=== PATIENT | male | born 1940 | race Caucasian/White ===

== ENCOUNTER → 2019-10-27 | Outpatient (CLI) | payer MEDICARE ==
[~2019-10-27] VITALS: Ht 180.3 cm; Wt 77.1 kg
[~2019-10-27] MED LIST: AMLO5TAB15 PO; CLOP75TA28 PO; GLIM2TAB33 PO; METF-370 PO
== END | disposition home or self-care (01) ==
LOC: Rad HDHVI 13:58
PROVIDERS: ATTEND Internal Medicine Cardiovascular Disease
DX: E11.9 Type 2 diabetes mellitus without complications (principal); I10 Essential (primary) hypertension; R07.89 Other chest pain; Z95.1 Presence of aortocoronary bypass graft; Z82.49 Family history of ischemic heart disease and other diseases of the circulatory system
CPT/HCPCS: 78452; 93017; 93306; 96374; A9500

== ENCOUNTER → 2019-11-23 | Outpatient (CLI) | payer MEDICARE ==
[~2019-11-23] VITALS: Ht 180.3 cm; Wt 76.8 kg
[~2019-11-23] MED LIST changes: +COLCPOW2 PO; +OMEP20TA PO; +TERA2CAP45 PO
[2019-11-23 09:00] VITALS: BP 129/67
--- NOTE | 2019-11-23 09:00 | NUR ---
CHF PT ARRIVED TO THE CHF CLINIC FOR PRE OP LABS CXR AND EKG FOR LHC. DX ANGINA, HTN, DM, AFIB, CAD A/O X4
[2019-11-23 09:38] VITALS: BP 136/72
--- NOTE | 2019-11-23 09:38 | NUR ---
Pre-Op Discharge Summary: See e-MAR for any medications given for this visit. Pre-op orders received and carried out per MD of EKG, LABS and chest xrays. Patient given a copy of EKG with [facility] for further follow up care. NOTE EKG DONE BY TOMAS EPPERSON
[2019-11-23 11:56] LABS: Basophils # (auto) 0.1 10 ^3/uL (0-0.2); Eosinophils # (auto) 0.4 10 ^3/uL (0-0.8); Eosinophils % (auto) 5.4 % (0.0-7.0); Hematocrit 39.3 % (41.0-53.0); Hemoglobin 13.4 g/dL (13.5-17.5); Lymphocytes # (auto) 1.1 10 ^3/uL (0.4-5.4); Lymphocytes % (auto) 14.4 % (10.0-50.0); Mean Corpuscular Hemoglobin 31.4 pg (28.0-32.0); Mean Corpuscular Volume 92.1 fL (80.0-100.0); Monocytes # (auto) 0.7 10 ^3/uL (0-1.3); Monocytes % (auto) 8.7 % (0.0-12.0); Neutrophils # (auto) 5.3 10 ^3/uL (1.6-8.6); Neutrophils % (auto) 70.5 % (37.0-80.0); Nucleated Red Blood Cells % 0.1 %; Platelet Count (auto) 238 10^3/uL (140-450); Red Blood Cells 4.27 10^6/uL (4.5-5.90); Red Cell Distribution Width 13.8 % (11.8-14.3); White Blood Cell 7.5 10^3/uL (4.4-10.8)
[2019-11-23 12:07] LABS: Potassium 4.2 mmol/L (3.5-5.1)
[2019-11-23 12:12] LABS: BUN/Creatinine Ratio 26.3; Calcium 9.3 mg/dL (8.5-10.1)
[2019-11-23 12:17] LABS: INR 1.02 (0.9-1.15); Partial Thromboplastin Time 27.9 sec (23.64-32.05)
== END | disposition home or self-care (01) ==
LOC: Rad HDHVI 08:42
PROVIDERS: ATTEND Internal Medicine Cardiovascular Disease
DX: I25.10 Atherosclerotic heart disease of native coronary artery without angina pectoris (principal); Z01.812 Encounter for preprocedural laboratory examination; I10 Essential (primary) hypertension; E11.9 Type 2 diabetes mellitus without complications; I48.91 Unspecified atrial fibrillation
CPT/HCPCS: 36415; 71046; 80048; 85025; 85610; 85730; 93005; G0463

== ENCOUNTER 2019-11-25 09:13 | Inpatient (IN) | payer MEDICARE, OTHER ==
[~2019-11-25] VITALS: Ht 180.3 cm; Wt 76.6 kg
[~2019-11-25 09:13] MED LIST changes: -COLCPOW2 PO; -OMEP20TA PO; -TERA2CAP45 PO
[2019-11-25] MEDS ORDERED: ANGIOMAX 250 MG VIAL IV ONE (10:27)
[2019-11-25] MEDS ORDERED: LIDOCAINE 2%HCL (LOCAL ANESTH.) INJ 20ML MDV ONE (10:27)
[2019-11-25] MEDS ORDERED: IOHEXOL 350 MG/ML 100ML IJ ONE (10:27)
[2019-11-25] MEDS ORDERED: fentaNYL CITRATE 100 MCG/2 ML VL ONE (10:28)
[2019-11-25] MEDS ORDERED: SODIUM CHL 0.9% 50 ML ONE (10:28)
[2019-11-25] MEDS ORDERED: MIDAZOLAM HCL 1MG/1ML-2 ML VIAL ONE (10:28)
[2019-11-25] MEDS ORDERED: ASPirin 325 MG TAB ONE (11:27)
[2019-11-25] MEDS ORDERED: CLOPIDOGREL BISULFATE 75 MG TAB ONE (11:27)
[2019-11-25] MEDS ORDERED: NITROGLYCERIN 0.4 MG SL TAB SL PRN (12:45)
[2019-11-25] MEDS ORDERED: ONDANSETRON HCL 4 MG/2 ML VIAL IV PRN (12:45)
[2019-11-25] MEDS ORDERED: HYDROcodone-ACET 5/325MG TAB PO PRN (12:45)
[2019-11-25] MEDS ORDERED: ACETAMINOPHEN 500 MG TAB PO PRN (12:45)
[2019-11-25] MEDS ORDERED: MORPHINE SULF INJ 2 MG/ML SYRINGE 1ML IV PRN (12:45)
[2019-11-25] MEDS ORDERED: DEXTROSE (50%) 50ML SYRG IV PRN (12:45)
[2019-11-25 14:21] VITALS: BP 130/80
[2019-11-25] MEDS ORDERED: COLCPOW2 PO (16:04)
[2019-11-25] MEDS ORDERED: OMEP20TA PO (16:04)
[2019-11-25] MEDS ORDERED: TERA2CAP45 PO (16:05)
[2019-11-25 16:30] VITALS: BP 111/65
[2019-11-25] MEDS: InsuLIN REG 1unit/0.01ml Soln (100units/ml) SC SCH ×2 (17:00→21:41)
[2019-11-25] MEDS: ACCU-CHEK COMFORT CURVE STRIP VI SCH ×2 (17:00→21:41)
[2019-11-25 21:55] VITALS: BP 130/66
[2019-11-26 05:36] VITALS: BP 138/69
[2019-11-26] MEDS: ACCU-CHEK COMFORT CURVE STRIP VI SCH (06:40)
[2019-11-26] MEDS: InsuLIN REG 1unit/0.01ml Soln (100units/ml) SC SCH (06:41)
[2019-11-26 09:00] VITALS: BP 118/63
[2019-11-26] MEDS ORDERED: GLIMEPIRIDE 2 MG TAB PO SCH (10:00)
[2019-11-26] MEDS ORDERED: CLOPIDOGREL BISULFATE 75 MG TAB PO SCH (10:00)
[2019-11-26] MEDS ORDERED: amLODIPine BESYLATE 5 MG TAB PO SCH (10:00)
[2019-11-26] MEDS ORDERED: ASPirin-EC 81 mg tab PO SCH (10:00)
== END 2019-11-26 11:20 | disposition home or self-care (01) | DRG 246 ==
LOC: CATH 09:13 → TELE-WESTW 13:19
PROVIDERS: ADMIT Internal Medicine Cardiovascular Disease; ATTEND Internal Medicine Cardiovascular Disease
PROC: 027034Z Dilation of Coronary Artery, One Artery with Drug-eluting Intraluminal Device, Percutaneous Approach (ICD-10-PCS; principal; 2019-11-25)
PROC: 4A023N7 Measurement of Cardiac Sampling and Pressure, Left Heart, Percutaneous Approach (ICD-10-PCS; 2019-11-25)
PROC: B2111ZZ Fluoroscopy of Multiple Coronary Arteries using Low Osmolar Contrast (ICD-10-PCS; 2019-11-25)
PROC: B2181ZZ Fluoroscopy of Left Internal Mammary Bypass Graft using Low Osmolar Contrast (ICD-10-PCS; 2019-11-25)
PROC: B2131ZZ Fluoroscopy of Multiple Coronary Artery Bypass Grafts using Low Osmolar Contrast (ICD-10-PCS; 2019-11-25)
PROC: B2151ZZ Fluoroscopy of Left Heart using Low Osmolar Contrast (ICD-10-PCS; 2019-11-25)
DX: I25.10 Atherosclerotic heart disease of native coronary artery without angina pectoris (principal); I50.21 Acute systolic (congestive) heart failure; I10 Essential (primary) hypertension; Z95.1 Presence of aortocoronary bypass graft; Z79.899 Other long term (current) drug therapy; I11.0 Hypertensive heart disease with heart failure
CPT/HCPCS: 36415; 71046; 80048; 82962; 85025; 85610; 85730; 92928; 93005; 93459; 99152; 99153; C1874; G0378; G0463; J2250

== ENCOUNTER → 2019-12-27 | Outpatient (CLI) | payer MEDICARE, OTHER ==
[~2019-12-27] VITALS: Ht 180.3 cm; Wt 70.3 kg
[~2019-12-27] MED LIST changes: +COLCPOW2 PO; +OMEP20TA PO; +TERA2CAP45 PO
== END | disposition home or self-care (01) ==
LOC: Rad HDHVI 09:15
PROVIDERS: ATTEND Internal Medicine Cardiovascular Disease
DX: I25.10 Atherosclerotic heart disease of native coronary artery without angina pectoris (principal); I10 Essential (primary) hypertension; E11.9 Type 2 diabetes mellitus without complications; Z95.1 Presence of aortocoronary bypass graft; Z80.49 Family history of malignant neoplasm of other genital organs
CPT/HCPCS: 78452; 93017; 93306; 96374; A9500

== ENCOUNTER → 2020-01-25 | Outpatient (CLI) | payer MEDICARE, OTHER ==
[~2020-01-25] MED LIST changes: +CYANOCOBALAMIN (B-12) 1000 MCG/1 ML VIAL IM ONE; +CYANOCOBALAMIN (B-12) 1000 MCG/1 ML VIAL ONE
--- NOTE | 2020-01-25 10:00 | NUR ---
CHF PT ARRIVED TO THE CHF CLINIC FOR EVAL, EKG, AND LABS PER MD ORDER. PT STARTED ENTRESTO X2WKS AGO. PT STATED HE DOES NOT SEEM TO BE HAVING ANY COMPLICATIONS OR REACTIONS FROM THE MEDICATION. A/OX4, AMBULATORY. PT STATED HE IS NOT WILLING TO COME IN MORE THAN ONCE A MONTH BECAUSE HE HAS A AT HOME THAT HE HAS TO CARE FOR. HE ALSO SEEMS VERY ANXIOUS TO FINISH HIS APPOINTMENT TODAY. I HAD AN INTENSE CONVERSATION WITH THE PT EDUCATING HIM IN THE IMPORTANCE OF COMING IN FOR REGULAR CHECKUPS WITH HIS CURRENT MEDICATION REGIMEN AND DIAGNOSIS. PT VERBALIZED UNDERSTAND BUT DID NOT SEEM TO ENGAGE MUCH INTEREST INTO THE CONVERSATION.
[2020-01-25 10:40] VITALS: BP 114/68
--- NOTE | 2020-01-25 10:40 | NUR ---
Discharge Instructions See e-MAR for any mediations given with this visit. Patient education given on disease process. Patient verbalized understanding. Previous labs reviewed. Patient discharged in stable condition with after care instructions and follow up appointment. MADE 1 MONTH APPOINTMENT WITH PT FOR EVAL AND TX. NOTE VIT B12 IM ADMIN BY DEBRA CALIX LOT# [id number] EXP 01/29
[2020-01-25 11:45] LABS: Basophils # (auto) 0.1 10 ^3/uL (0-0.2); Basophils % (auto) 1.2 % (0.0-2.0); Eosinophils # (auto) 0.2 10 ^3/uL (0-0.8); Eosinophils % (auto) 3.2 % (0.0-7.0); Hematocrit 40.4 % (41.0-53.0); Hemoglobin 13.5 g/dL (13.5-17.5); Lymphocytes # (auto) 0.8 10 ^3/uL (0.4-5.4); Mean Corpuscular Hemoglobin 30.4 pg (28.0-32.0); Mean Corpuscular Hgb Conc. 33.3 g/dL (32.0-36.0); Mean Corpuscular Volume 91.3 fL (80.0-100.0); Monocytes # (auto) 0.5 10 ^3/uL (0-1.3); Monocytes % (auto) 8.8 % (0.0-12.0); Neutrophils # (auto) 3.7 10 ^3/uL (1.6-8.6); Neutrophils % (auto) 70.8 % (37.0-80.0); Platelet Count (auto) 240 10^3/uL (140-450); Red Blood Cells 4.43 10^6/uL (4.5-5.90); Red Cell Distribution Width 13.6 % (11.8-14.3); White Blood Cell 5.3 10^3/uL (4.4-10.8)
[2020-01-25 11:58] LABS: Potassium 4.1 mmol/L (3.5-5.1)
[2020-01-25 12:06] LABS: Prostate Specific Antigen 0.11 ng/mL (0.0-4.0)
[2020-01-25 12:07] LABS: Albumin 3.9 g/dL (3.4-5.0); BUN/Creatinine Ratio 26.1; Bilirubin, Direct 0.4 mg/dL (0-0.2); Bilirubin, Total 1.8 mg/dL (0.2-1.0); Total Protein 6.7 g/dL (6.4-8.2)
== END | disposition home or self-care (01) ==
LOC: CHF HDHVI 09:53
PROVIDERS: ATTEND Internal Medicine Cardiovascular Disease
DX: I11.0 Hypertensive heart disease with heart failure (principal); I50.9 Heart failure, unspecified; E11.9 Type 2 diabetes mellitus without complications; I25.10 Atherosclerotic heart disease of native coronary artery without angina pectoris; C61 Malignant neoplasm of prostate; E03.9 Hypothyroidism, unspecified; Z79.899 Other long term (current) drug therapy; Z95.1 Presence of aortocoronary bypass graft
CPT/HCPCS: 36415; 80048; 80061; 80076; 82306; 82607; 83036; 83735; 83880; 84153; 84403; 84443; 85025; 93005; 96372; G0463; J3420

== ENCOUNTER → 2020-02-03 | Outpatient (CLI) | payer MEDICARE, OTHER ==
[~2020-02-03] MED LIST changes: +ASPI81CH43 CHEW; +CINN500C7 PO; +CYAN1TAB11 PO; -CYANOCOBALAMIN (B-12) 1000 MCG/1 ML VIAL IM ONE; -CYANOCOBALAMIN (B-12) 1000 MCG/1 ML VIAL ONE; +GARL200T PO; +LYSI500C3 PO; +SACU1TAB PO; +[UNRECOGNIZED DRUG - CODE] PO
[2020-02-03 13:48] VITALS: BP 117/68
--- NOTE | 2020-02-03 13:48 | NUR ---
CLINIC PT ARRIVED TO THE CLINIC FOR EVAL REGARDING L LOWER FLANK PAIN. PER PT HE STOPPED TAKING HIS ENTRESTO FOR THE LAST 48 HOURS DUE TO THE L LEFT FLANK PAIN. A/OX4, AMBULATORY.
--- NOTE | 2020-02-03 13:59 | NUR ---
Clinic Provider Clinic Provider into see pt with new orders received and carried out. WILFRIDO RN HAD DISCUSSION WITH PT ABOUT CURRENT MEDICATION REGIMEN AND ABOUT HIS DISEASE PROCESS. PT VERBALIZED UNDERSTANDING. PT SCHEDULED TO SEE MD WHYTE TOMORROW.
[2020-02-03 14:26] VITALS: BP 118/68
--- NOTE | 2020-02-03 14:26 | NUR ---
Discharge Instructions See e-MAR for any mediations given with this visit. Patient education given on disease process. Patient verbalized understanding. Previous labs reviewed. Patient discharged in stable condition with after care instructions and follow up appointment TOMORROW WITH MD WHYTE
[2020-02-03 15:51] LABS: Urine Blood Negative /uL (Negative); Urine Specific Gravity 1.028 (1.001-1.035)
[2020-02-03 16:03] LABS: Calcium 8.5 mg/dL (8.5-10.1); Magnesium 2.2 mg/dL (1.6-2.6); Potassium 3.9 mmol/L (3.5-5.1)
[2020-02-03 16:05] LABS: BUN/Creatinine Ratio 32.5
== END | disposition home or self-care (01) ==
LOC: CHF HDHVI 13:48
PROVIDERS: ATTEND Internal Medicine Cardiovascular Disease
DX: I50.23 Acute on chronic systolic (congestive) heart failure (principal); E83.40 Disorders of magnesium metabolism, unspecified; N39.0 Urinary tract infection, site not specified
CPT/HCPCS: 36415; 80048; 81003; 83735; G0463

== ENCOUNTER → 2020-02-07 | Outpatient (CLI) | payer MEDICARE, OTHER ==
[~2020-02-07] MED LIST changes: -ASPI81CH43 CHEW; -CINN500C7 PO; -CYAN1TAB11 PO; -GARL200T PO; +IOHEXOL 350 MG/ML 100ML IJ ONE; -LYSI500C3 PO; +READI-CAT 2 (BARIUM SULF)(VANILLA SMOOTHIE) 450ML ONE; -SACU1TAB PO; -[UNRECOGNIZED DRUG - CODE] PO
[2020-02-07 10:05] VITALS: BP 147/75
--- NOTE | 2020-02-07 10:05 | NUR ---
Patient into clinic for scheduled CT with IV contrast, patient takes metformin, told to hold metformin and paper reminder given to patient. Patient AAOx4, ambulatory, breathing even and unlabored.
--- NOTE | 2020-02-07 10:09 | NUR ---
IV insertion IV access obtained, via clean sterile technique by inserting 22 gauge catheter at LAC after 1 attempt(s). IV secured properly. No trauma to site. Patient tolerated procedure well. Blood drawn and labs sent stat.
--- NOTE | 2020-02-07 10:32 | NUR ---
IV removal IV DC'd with sterile technique, catheter fully intact. Pressure dressing applied to site. Patient tolerated procedure well.
[2020-02-07 10:35] VITALS: BP 155/74
--- NOTE | 2020-02-07 10:35 | NUR ---
CHF Clinic Discharge Instructions See e-MAR for any mediations given with this visit. Patient education given on disease process. Patient verbalized understanding. Previous labs reviewed. Patient discharged in stable condition with after care instructions and follow up appointment. Note Patient reminded to hold metformin prior to discharge, patient verbalized understanding.
== END | disposition home or self-care (01) ==
LOC: Rad HDHVI 09:43
PROVIDERS: ATTEND Internal Medicine Cardiovascular Disease
DX: I25.10 Atherosclerotic heart disease of native coronary artery without angina pectoris (principal); N20.0 Calculus of kidney; R94.4 Abnormal results of kidney function studies; N10 Acute pyelonephritis; I51.7 Cardiomegaly; I70.0 Atherosclerosis of aorta
CPT/HCPCS: 36415; 74177; 82565; G0463; Q9967

== ENCOUNTER 2020-05-09 11:09 | Inpatient (IN) | payer MEDICARE, OTHER ==
[~2020-05-09] VITALS: Ht 180.3 cm; Wt 69.5 kg
[~2020-05-09 11:09] MED LIST changes: -IOHEXOL 350 MG/ML 100ML IJ ONE; -READI-CAT 2 (BARIUM SULF)(VANILLA SMOOTHIE) 450ML ONE
[2020-05-09] MEDS ORDERED: SACU1TAB PO (11:53)
[2020-05-09] MEDS ORDERED: ASPI81CH43 CHEW (11:53)
[2020-05-09 13:01] LABS: Basophils # (auto) 0.1 10 ^3/uL (0-0.2); Basophils % (auto) 1.2 % (0.0-2.0); Eosinophils # (auto) 0.2 10 ^3/uL (0-0.8); Eosinophils % (auto) 4.2 % (0.0-7.0); Hematocrit 37.6 % (41.0-53.0); Lymphocytes # (auto) 0.8 10 ^3/uL (0.4-5.4); Lymphocytes % (auto) 14.6 % (10.0-50.0); Mean Corpuscular Hemoglobin 31.7 pg (28.0-32.0); Mean Corpuscular Hgb Conc. 34.5 g/dL (32.0-36.0); Mean Corpuscular Volume 92.1 fL (80.0-100.0); Monocytes # (auto) 0.4 10 ^3/uL (0-1.3); Monocytes % (auto) 7.3 % (0.0-12.0); Neutrophils # (auto) 3.9 10 ^3/uL (1.6-8.6); Neutrophils % (auto) 72.7 % (37.0-80.0); Platelet Count (auto) 212 10^3/uL (140-450); Red Blood Cells 4.08 10^6/uL (4.5-5.90); Red Cell Distribution Width 13.9 % (11.8-14.3); White Blood Cell 5.4 10^3/uL (4.4-10.8)
[2020-05-09 13:17] LABS: Albumin 3.9 g/dL (3.4-5.0); Anion Gap 5 (5-15); Blood Urea Nitrogen 22 mg/dL (7-18); Calcium 8.9 mg/dL (8.5-10.1); Carbon Dioxide 25 mmol/L (21-32); Chloride 107 mmol/L (98-107); Glucose 100 mg/dL (74-106); Magnesium 2.1 mg/dL (1.6-2.6); Potassium 4.4 mmol/L (3.5-5.1); Sodium 137 mmol/L (136-145)
[2020-05-09 13:23] LABS: Alanine Aminotransferase 19 U/L (16-61); Alkaline Phosphatase 59 U/L (45-117); Aspartate Aminotransferase 16 U/L (15-37); BUN/Creatinine Ratio 26.2; GFR African American 113 mL/min; GFR Non-African American 93 mL/min; Total Protein 6.5 g/dL (6.4-8.2)
[2020-05-09] MEDS ORDERED: NITROGLYCERIN 0.4 MG SL TAB SL PRN (13:30)
[2020-05-09] MEDS ORDERED: MORPHINE SULF INJ 2 MG/ML SYRINGE 1ML IV PRN (13:30)
[2020-05-09] MEDS ORDERED: LYSI500C3 PO (14:15)
[2020-05-09] MEDS ORDERED: [UNRECOGNIZED DRUG - CODE] PO (14:15)
[2020-05-09] MEDS ORDERED: CYAN1TAB11 PO (14:15)
[2020-05-09] MEDS ORDERED: GARL200T PO (14:16)
[2020-05-09] MEDS ORDERED: CINN500C7 PO (14:16)
--- NOTE | 2020-05-09 17:44 | NUR ---
Telemetry admit from ER OLIVER CORNELL admitted to Telemetry unit after SBAR received. Patient oriented to JOSIAS HERNANDEZ, primary RN, unit, room, bed, and unit policies regarding patient care and visiting hours. Patient now on continuous telemetry monitoring, tele box # [id number] and telemetry reading on arrival to unit is 75 NSR. Patient on room air weighed by bedscale and encouraged to call if they need something. All questions and concerns addressed, patient verbalized understanding.
[2020-05-09 18:00] VITALS: BP 144/77
--- NOTE | 2020-05-09 18:15 | NUR ---
NEW ORDER FOR AC/HS ACCUCHECK
[2020-05-09] MEDS ORDERED: DEXTROSE (50%) 50ML SYRG IV PRN (18:45)
--- NOTE | 2020-05-09 19:05 | NUR ---
ENDORSED CARE TO NIGHT RN
--- NOTE | 2020-05-09 20:00 | NUR ---
Opening Shift Note Assumed care of patient, awake and alert. No S/S of distress/SOB or pain. Instructed on POC and to call for assist PRN, will continue to monitor for changes Q1hr and PRN.Patient has his own med. in his belonging ,refused to give it to R.n.,said he will not take anything from it.
[2020-05-09] MEDS: metFORMIN HYDROCHLORIDE 500 MG TAB PO SCH (21:44)
[2020-05-09] MEDS: SACUBITRIL-VALSARTAN 24mg/26mg TAB PO SCH (21:45)
[2020-05-09] MEDS: ACCU-CHEK COMFORT CURVE STRIP VI SCH (21:48)
[2020-05-09] MEDS: InsuLIN REG 1unit/0.01ml Soln (100units/ml) SC SCH (21:48)
[2020-05-09 22:00] VITALS: BP 134/68
[2020-05-10 05:00] VITALS: BP 133/66
[2020-05-10] MEDS: ACCU-CHEK COMFORT CURVE STRIP VI SCH ×3 (06:28→17:00)
[2020-05-10] MEDS: InsuLIN REG 1unit/0.01ml Soln (100units/ml) SC SCH ×3 (06:28→17:00)
--- NOTE | 2020-05-10 06:32 | NUR ---
Given juice 1 cartoon.
--- NOTE | 2020-05-10 07:14 | NUR ---
Report given to Nena Stevens, patient is resting no distress.
[2020-05-10 08:00] VITALS: BP 115/68
--- NOTE | 2020-05-10 08:00 | NUR ---
Opening shift note Assumed care of patient, awake and alert. No S/S of distress/SOB .No c/o pain. Instructed on POC and to call for assist PRN.Bed at lowest locked position and call light within reach. Will continue to monitor for changes Q1hr and PRN.
[2020-05-10 09:00] VITALS: BP 115/68
[2020-05-10] MEDS ORDERED: METOPROLOL SUCCINATE XL 50 MG TAB PO SCH (10:00)
[2020-05-10] MEDS ORDERED: GLIMEPIRIDE 2 MG TAB PO SCH (10:00)
[2020-05-10] MEDS ORDERED: CLOPIDOGREL BISULFATE 75 MG TAB PO SCH (10:00)
[2020-05-10] MEDS ORDERED: ASPirin 81 mg TAB PO SCH (10:00)
[2020-05-10] MEDS: metFORMIN HYDROCHLORIDE 500 MG TAB PO SCH (10:26)
[2020-05-10] MEDS: SACUBITRIL-VALSARTAN 24mg/26mg TAB PO SCH (10:26)
[2020-05-10 12:51] VITALS: BP 111/67
--- NOTE | 2020-05-10 13:12 | NUR ---
Patient wants to know why he is here, he is upset and is asking when his Dr. will be coming in to see him. I paged Dr. Hutchinson, awaiting call back.
[2020-05-10 16:43] VITALS: BP 124/69
--- NOTE | 2020-05-10 17:00 | NUR ---
Dr. Hutchinson at bedside. Patient updated on POC.
--- NOTE | 2020-05-10 17:20 | NUR ---
Patient is refusing Accu check. patient states "Im going home i don't need it".
[2020-05-10 17:47] VITALS: BP 124/69
--- NOTE | 2020-05-10 17:55 | NUR ---
Called/left a message for NOK to notify of discharge plan. Awaiting call back
--- NOTE | 2020-05-10 18:42 | NUR ---
Discharge instructions given as ordered. Encourage to follow up with PMD as instructed. All questions and concerns addressed. Patient verbalized understanding. Medication reconciliation form completed and copy given to patient. IV removed with catheter intact, pressure dressing applied. Telemetry unit returned to ICU.Patient is currently waiting for transportation. No distress noted at time of discharge. Will endorse care to NOC RN.
--- NOTE | 2020-05-10 19:10 | NUR ---
Pt discharged ambulatory in stable condition, with all belongings. Pt verbalized understanding of discharge instructions and will f/u with PCP.
== END 2020-05-10 18:38 | disposition home or self-care (01) | DRG 291 ==
LOC: ER 11:09 → TELE 11:10 → TELE-WESTW 17:09
PROVIDERS: ADMIT Internal Medicine Cardiovascular Disease; ATTEND Internal Medicine Cardiovascular Disease
DX: I11.0 Hypertensive heart disease with heart failure (principal); I50.21 Acute systolic (congestive) heart failure; R55 Syncope and collapse; E78.5 Hyperlipidemia, unspecified; Z98.61 Coronary angioplasty status; Z95.1 Presence of aortocoronary bypass graft; Z83.3 Family history of diabetes mellitus; E11.21 Type 2 diabetes mellitus with diabetic nephropathy; E11.40 Type 2 diabetes mellitus with diabetic neuropathy, unspecified
CPT/HCPCS: 36415; 70450; 71045; 80053; 82962; 83735; 84484; 85025; G0378

== ENCOUNTER → 2020-10-24 | Outpatient (CLI) | payer MEDICARE, OTHER ==
[~2020-10-24] MED LIST changes: -AMLO5TAB15 PO; +ASPI81CH43 CHEW; +CINN500C7 PO; -COLCPOW2 PO; +CYAN1TAB11 PO; +GARL200T PO; -OMEP20TA PO; +SACU1TAB PO; -TERA2CAP45 PO; +[UNRECOGNIZED DRUG - CODE] PO
[2020-10-24 12:50] LABS: Urine Blood 1+ /uL (Negative); Urine Specific Gravity 1.022 (1.001-1.035)
== END | disposition home or self-care (01) ==
LOC: LAB 10:49
PROVIDERS: ATTEND Internal Medicine Cardiovascular Disease
DX: R94.4 Abnormal results of kidney function studies (principal); N39.0 Urinary tract infection, site not specified
CPT/HCPCS: 36415; 81003; 82565

== ENCOUNTER 2020-11-03 11:31 | Emergency (ER) | payer MEDICARE, OTHER ==
[~2020-11-03] VITALS: Ht 180.3 cm; Wt 70.3 kg
[2020-11-03 15:18] VITALS: BP 128/62
== END 2020-11-03 15:19 | disposition home or self-care (01) ==
LOC: ER 11:31
DX: K59.00 Constipation, unspecified (principal); E11.9 Type 2 diabetes mellitus without complications; I10 Essential (primary) hypertension; Z98.61 Coronary angioplasty status
CPT/HCPCS: 74018

== ENCOUNTER 2020-11-09 02:25 | Emergency (ER) | payer MEDICARE, OTHER ==
[~2020-11-09] VITALS: Ht 180.3 cm; Wt 68.9 kg
[2020-11-09 03:20] LABS: Urine Bacteria NONE SEEN /hpf (None Seen); Urine Blood 1+ /uL (Negative); Urine Specific Gravity 1.008 (1.001-1.035); Urine WBC 1 /hpf (0 - 3)
[2020-11-09 04:31] LABS: Basophils # (auto) 0.1 10 ^3/uL (0-0.2); Eosinophils # (auto) 0.3 10 ^3/uL (0-0.8); Eosinophils % (auto) 4.9 % (0.0-7.0); Hematocrit 35.2 % (41.0-53.0); Hemoglobin 12.2 g/dL (13.5-17.5); Lymphocytes # (auto) 1.5 10 ^3/uL (0.4-5.4); Lymphocytes % (auto) 21.6 % (10.0-50.0); Mean Corpuscular Hemoglobin 32.2 pg (28.0-32.0); Mean Corpuscular Hgb Conc. 34.7 g/dL (32.0-36.0); Mean Corpuscular Volume 92.6 fL (80.0-100.0); Monocytes # (auto) 0.6 10 ^3/uL (0-1.3); Monocytes % (auto) 8.2 % (0.0-12.0); Neutrophils # (auto) 4.4 10 ^3/uL (1.6-8.6); Neutrophils % (auto) 64.3 % (37.0-80.0); Platelet Count (auto) 220 10^3/uL (140-450); Red Cell Distribution Width 13.4 % (11.8-14.3); White Blood Cell 6.8 10^3/uL (4.4-10.8)
[2020-11-09 04:47] LABS: Calcium 8.8 mg/dL (8.5-10.1); Chloride 97 mmol/L (98-107); Potassium 4.6 mmol/L (3.5-5.1); Sodium 129 mmol/L (136-145)
[2020-11-09 04:50] LABS: Alanine Aminotransferase 24 U/L (16-61); Anion Gap 8 (5-15); Aspartate Aminotransferase 25 U/L (15-37); BUN/Creatinine Ratio 22.4; Blood Urea Nitrogen 19 mg/dL (7-18); Carbon Dioxide 24 mmol/L (21-32); GFR African American 111 mL/min; GFR Non-African American 92 mL/min; Glucose 91 mg/dL (74-106); Lipase 57 U/L (73-393); Magnesium 2.3 mg/dL (1.6-2.6)
[2020-11-09 04:56] LABS: Alkaline Phosphatase 58 U/L (45-117); Bilirubin, Total 1.1 mg/dL (0.2-1.0); Total Protein 6.5 g/dL (6.4-8.2)
[2020-11-09 08:35] VITALS: BP 146/74
== END 2020-11-09 09:49 | disposition home or self-care (01) ==
LOC: ER 02:28
DX: N20.0 Calculus of kidney (principal)
CPT/HCPCS: 36415; 74176; 80053; 81001; 83605; 83690; 83735; 84484; 85025; 93005

== ENCOUNTER → 2020-11-13 | Outpatient (CLI) | payer MEDICARE, OTHER | END | disposition home or self-care (01) | LOC: Rad HDHVI 15:02 | PROVIDERS: ATTEND Internal Medicine Cardiovascular Disease | DX: I67.82 Cerebral ischemia (principal); I67.2 Cerebral atherosclerosis; G31.89 Other specified degenerative diseases of nervous system | CPT/HCPCS: 70450 ==

== ENCOUNTER → 2020-11-14 | Outpatient (CLI) | payer MEDICARE, OTHER ==
[~2020-11-14] VITALS: Ht 180.3 cm; Wt 70.3 kg
== END | disposition home or self-care (01) ==
LOC: Rad HDHVI 08:57
PROVIDERS: ATTEND Internal Medicine Cardiovascular Disease
DX: I11.0 Hypertensive heart disease with heart failure (principal); I50.43 Acute on chronic combined systolic (congestive) and diastolic (congestive) heart failure; I42.0 Dilated cardiomyopathy; I25.10 Atherosclerotic heart disease of native coronary artery without angina pectoris; I25.5 Ischemic cardiomyopathy; I25.2 Old myocardial infarction; E11.9 Type 2 diabetes mellitus without complications; R07.89 Other chest pain; Z95.1 Presence of aortocoronary bypass graft; Z82.49 Family history of ischemic heart disease and other diseases of the circulatory system
CPT/HCPCS: 78452; 93017; 96374; A9500

== ENCOUNTER → 2020-11-16 | Day surgery (SDC) | payer MEDICARE, OTHER ==
[2020-11-13 14:40] LABS: Basophils # (auto) 0.1 10 ^3/uL (0-0.2); Basophils % (auto) 1.1 % (0.0-2.0); Eosinophils # (auto) 0.1 10 ^3/uL (0-0.8); Eosinophils % (auto) 1.7 % (0.0-7.0); Hematocrit 36.2 % (41.0-53.0); Hemoglobin 12.7 g/dL (13.5-17.5); Lymphocytes # (auto) 1.1 10 ^3/uL (0.4-5.4); Lymphocytes % (auto) 15.9 % (10.0-50.0); Mean Corpuscular Hemoglobin 31.9 pg (28.0-32.0); Mean Corpuscular Volume 91.2 fL (80.0-100.0); Monocytes # (auto) 0.6 10 ^3/uL (0-1.3); Monocytes % (auto) 8.3 % (0.0-12.0); Platelet Count (auto) 231 10^3/uL (140-450); Red Blood Cells 3.97 10^6/uL (4.5-5.90); Red Cell Distribution Width 13.2 % (11.8-14.3); White Blood Cell 6.9 10^3/uL (4.4-10.8)
[2020-11-13 14:52] LABS: Partial Thromboplastin Time 30.5 sec (23.0-31.2)
[~2020-11-16] VITALS: Ht 180.3 cm; Wt 69.9 kg
[~2020-11-16] MED LIST changes: +MIDAZOLAM HCL 5 MG/ML-1ML VIAL ONE; +diphenhdrAMINE HCL 50 MG/1 ML VL ONE; +fentaNYL CITRATE 100 MCG/2 ML VL ONE
[2020-11-16 11:45] VITALS: BP 110/63
== END | disposition home or self-care (01) ==
LOC: GI 08:59
PROVIDERS: ATTEND Internal Medicine Gastroenterology
DX: R19.7 Diarrhea, unspecified (principal); K57.30 Diverticulosis of large intestine without perforation or abscess without bleeding; K64.8 Other hemorrhoids; K63.89 Other specified diseases of intestine; I25.799 Atherosclerosis of other coronary artery bypass graft(s) with unspecified angina pectoris; I50.9 Heart failure, unspecified; E11.9 Type 2 diabetes mellitus without complications; E56.9 Vitamin deficiency, unspecified; Z20.822 Contact with and (suspected) exposure to COVID-19; Z98.890 Other specified postprocedural states; Z79.899 Other long term (current) drug therapy; Z95.5 Presence of coronary angioplasty implant and graft
CPT/HCPCS: 36415; 45380; 82962; 85025; 85610; 85730; J1200; J2250; J3010; J7030; U0003; G0500

== ENCOUNTER → 2020-11-29 | Outpatient (CLI) | payer MEDICARE, OTHER ==
[~2020-11-29] MED LIST changes: -MIDAZOLAM HCL 5 MG/ML-1ML VIAL ONE; -diphenhdrAMINE HCL 50 MG/1 ML VL ONE; -fentaNYL CITRATE 100 MCG/2 ML VL ONE
[2020-11-29 09:30] VITALS: BP 135/67
[2020-11-29 09:41] VITALS: BP 130/57
[2020-11-29 11:43] LABS: Basophils # (auto) 0.1 10 ^3/uL (0-0.2); Basophils % (auto) 1.2 % (0.0-2.0); Eosinophils # (auto) 0.1 10 ^3/uL (0-0.8); Eosinophils % (auto) 1.5 % (0.0-7.0); Hematocrit 35.4 % (41.0-53.0); Hemoglobin 12.5 g/dL (13.5-17.5); Lymphocytes # (auto) 0.8 10 ^3/uL (0.4-5.4); Lymphocytes % (auto) 13.1 % (10.0-50.0); Mean Corpuscular Hgb Conc. 35.3 g/dL (32.0-36.0); Mean Corpuscular Volume 90.7 fL (80.0-100.0); Monocytes # (auto) 0.6 10 ^3/uL (0-1.3); Monocytes % (auto) 9.6 % (0.0-12.0); Neutrophils # (auto) 4.3 10 ^3/uL (1.6-8.6); Neutrophils % (auto) 74.6 % (37.0-80.0); Nucleated Red Blood Cells % 0.1 %; Platelet Count (auto) 286 10^3/uL (140-450); Red Blood Cells 3.91 10^6/uL (4.5-5.90); Red Cell Distribution Width 13.2 % (11.8-14.3); White Blood Cell 5.8 10^3/uL (4.4-10.8)
[2020-11-29 12:18] LABS: Potassium 4.4 mmol/L (3.5-5.1)
[2020-11-29 12:20] LABS: INR 1.02 (0.9-1.15); Partial Thromboplastin Time 30.3 sec (23.0-31.2)
[2020-11-29 12:22] LABS: BUN/Creatinine Ratio 36.1; Calcium 8.8 mg/dL (8.5-10.1)
== END | disposition home or self-care (01) ==
LOC: Rad HDHVI 08:57
PROVIDERS: ATTEND Internal Medicine Cardiovascular Disease
DX: Z01.812 Encounter for preprocedural laboratory examination (principal); I70.0 Atherosclerosis of aorta; R94.31 Abnormal electrocardiogram [ECG] [EKG]; I50.43 Acute on chronic combined systolic (congestive) and diastolic (congestive) heart failure; Z95.1 Presence of aortocoronary bypass graft
CPT/HCPCS: 36415; 71046; 80048; 85025; 85610; 85730; 93005; G0463

== ENCOUNTER → 2021-06-26 | Outpatient (CLI) | payer MEDICARE, OTHER | END | disposition home or self-care (01) | LOC: Rad HDHVI 08:09 | PROVIDERS: ATTEND Internal Medicine Cardiovascular Disease | DX: I10 Essential (primary) hypertension (principal); R06.02 Shortness of breath | CPT/HCPCS: 93306 ==

== ENCOUNTER → 2022-01-30 | Outpatient (CLI) | payer MEDICARE, OTHER | END | disposition home or self-care (01) | LOC: Rad HDHVI 08:50 | PROVIDERS: ATTEND Internal Medicine | DX: M19.032 Primary osteoarthritis, left wrist (principal) | CPT/HCPCS: 73130 ==

== ENCOUNTER → 2022-03-14 | Outpatient (CLI) | payer MEDICARE, OTHER | END | disposition home or self-care (01) | LOC: Rad HDHVI 09:28 | PROVIDERS: ATTEND Internal Medicine Cardiovascular Disease | DX: I08.2 Rheumatic disorders of both aortic and tricuspid valves (principal); R00.2 Palpitations; R06.02 Shortness of breath | CPT/HCPCS: 93306 ==

== ENCOUNTER → 2022-05-01 | Outpatient (CLI) | payer MEDICARE, OTHER ==
[2022-05-01 16:21] LABS: Urine Blood 1+ /uL (Negative); Urine Specific Gravity 1.012 (1.001-1.035)
[2022-05-01 16:25] LABS: Basophils # (auto) 0.1 10 ^3/uL (0-0.2); Eosinophils # (auto) 0.2 10 ^3/uL (0-0.8); Eosinophils % (auto) 4.6 % (0.0-7.0); Hematocrit 35.2 % (41.0-53.0); Hemoglobin 11.7 g/dL (13.5-17.5); Lymphocytes # (auto) 0.9 10 ^3/uL (0.4-5.4); Lymphocytes % (auto) 17.5 % (10.0-50.0); Mean Corpuscular Hemoglobin 31.1 pg (28.0-32.0); Mean Corpuscular Hgb Conc. 33.4 g/dL (32.0-36.0); Mean Corpuscular Volume 93.3 fL (80.0-100.0); Monocytes # (auto) 0.5 10 ^3/uL (0-1.3); Neutrophils # (auto) 3.6 10 ^3/uL (1.6-8.6); Neutrophils % (auto) 67.9 % (37.0-80.0); Red Blood Cells 3.77 10^6/uL (4.5-5.90); Red Cell Distribution Width 13.6 % (11.8-14.3); White Blood Cell 5.3 10^3/uL (4.4-10.8)
[2022-05-01 16:44] LABS: Potassium 4.6 mmol/L (3.5-5.1)
[2022-05-01 16:52] LABS: Albumin 3.7 g/dL (3.4-5.0); BUN/Creatinine Ratio 25.7; Bilirubin, Direct 0.2 mg/dL (0-0.2); Bilirubin, Total 0.7 mg/dL (0.2-1.0); Calcium 8.8 mg/dL (8.5-10.1); Total Protein 6.4 g/dL (6.4-8.2)
== END | disposition home or self-care (01) ==
LOC: LAB 10:51
PROVIDERS: ATTEND Internal Medicine Cardiovascular Disease
DX: C61 Malignant neoplasm of prostate (principal); I10 Essential (primary) hypertension; E55.9 Vitamin D deficiency, unspecified; D51.3 Other dietary vitamin B12 deficiency anemia; D64.9 Anemia, unspecified; E11.9 Type 2 diabetes mellitus without complications; R00.2 Palpitations; R53.1 Weakness; R30.0 Dysuria
CPT/HCPCS: 36415; 80048; 80061; 80076; 81003; 82306; 83036; 84153; 84403; 84443; 85025

== ENCOUNTER → 2022-05-16 | Outpatient (CLI) | payer MEDICARE, OTHER ==
[~2022-05-16] VITALS: Ht 180.3 cm; Wt 72.6 kg
[~2022-05-16] MED LIST changes: +ADENOSINE 61 MG in GIVE UN-DILUTED 0 ML IV ONE; +ADENOSINE 90 MG/30 ML INJ IV ONE
== END | disposition home or self-care (01) ==
LOC: Rad HDHVI 08:09
PROVIDERS: ATTEND Internal Medicine Cardiovascular Disease
DX: I25.10 Atherosclerotic heart disease of native coronary artery without angina pectoris (principal); I25.2 Old myocardial infarction; R06.02 Shortness of breath; R07.89 Other chest pain; R42 Dizziness and giddiness; R53.83 Other fatigue; E78.00 Pure hypercholesterolemia, unspecified; I10 Essential (primary) hypertension; E11.9 Type 2 diabetes mellitus without complications; Z82.49 Family history of ischemic heart disease and other diseases of the circulatory system; Z95.1 Presence of aortocoronary bypass graft
CPT/HCPCS: 78452; 93005; 96374; 96375; A9500; J0153

== ENCOUNTER → 2022-07-31 | Outpatient (CLI) | payer MEDICARE, OTHER ==
[~2022-07-31] MED LIST changes: -ADENOSINE 61 MG in GIVE UN-DILUTED 0 ML IV ONE; -ADENOSINE 90 MG/30 ML INJ IV ONE
== END | disposition home or self-care (01) ==
LOC: Rad HDHVI 08:45
PROVIDERS: ATTEND Internal Medicine Cardiovascular Disease
DX: I08.8 Other rheumatic multiple valve diseases (principal); I11.0 Hypertensive heart disease with heart failure; I50.43 Acute on chronic combined systolic (congestive) and diastolic (congestive) heart failure; I77.819 Aortic ectasia, unspecified site
CPT/HCPCS: 93306

== ENCOUNTER → 2022-08-19 | Outpatient (CLI) | payer MEDICARE, OTHER | END | disposition home or self-care (01) | LOC: Rad HDHVI 08:16 | PROVIDERS: ATTEND Internal Medicine Cardiovascular Disease | DX: I65.23 Occlusion and stenosis of bilateral carotid arteries (principal); I10 Essential (primary) hypertension | CPT/HCPCS: 93880 ==

== ENCOUNTER → 2023-01-16 | Outpatient (CLI) | payer MEDICARE, OTHER | END | disposition home or self-care (01) | LOC: Rad HDHVI 08:50 | PROVIDERS: ATTEND Internal Medicine Cardiovascular Disease | DX: I08.3 Combined rheumatic disorders of mitral, aortic and tricuspid valves (principal); R06.02 Shortness of breath; I10 Essential (primary) hypertension | CPT/HCPCS: 93306 ==

== ENCOUNTER → 2023-06-18 | Outpatient (CLI) | payer MEDICARE, OTHER | END | disposition home or self-care (01) | LOC: Rad HDHVI 10:46 | PROVIDERS: ATTEND Internal Medicine Cardiovascular Disease | DX: I65.23 Occlusion and stenosis of bilateral carotid arteries (principal); I10 Essential (primary) hypertension | CPT/HCPCS: 93880 ==

== ENCOUNTER → 2023-06-23 | Outpatient (CLI) | payer MEDICARE, OTHER ==
[~2023-06-23] VITALS: Ht 180.3 cm; Wt 72.6 kg
[~2023-06-23] MED LIST changes: +ADENOSINE 61 MG in GIVE UN-DILUTED 0 ML IV ONE; +ADENOSINE 90 MG/30 ML INJ IV ONE
== END | disposition home or self-care (01) ==
LOC: Rad HDHVI 09:19
PROVIDERS: ATTEND Internal Medicine Cardiovascular Disease
DX: I11.0 Hypertensive heart disease with heart failure (principal); I50.23 Acute on chronic systolic (congestive) heart failure; I25.10 Atherosclerotic heart disease of native coronary artery without angina pectoris; I35.0 Nonrheumatic aortic (valve) stenosis; E11.9 Type 2 diabetes mellitus without complications; E78.00 Pure hypercholesterolemia, unspecified; Z95.1 Presence of aortocoronary bypass graft; Z82.49 Family history of ischemic heart disease and other diseases of the circulatory system
CPT/HCPCS: 78452; 93005; 96374; 96375; A9500; J0153

== ENCOUNTER → 2024-01-26 | Outpatient (CLI) | payer MEDICARE, OTHER ==
[~2024-01-26] MED LIST changes: -ADENOSINE 61 MG in GIVE UN-DILUTED 0 ML IV ONE; -ADENOSINE 90 MG/30 ML INJ IV ONE
== END | disposition home or self-care (01) ==
LOC: Rad HDHVI 10:29
PROVIDERS: ATTEND Internal Medicine Cardiovascular Disease
DX: I08.3 Combined rheumatic disorders of mitral, aortic and tricuspid valves (principal); R06.02 Shortness of breath; I11.9 Hypertensive heart disease without heart failure
CPT/HCPCS: 93306

== ENCOUNTER → 2024-05-05 | Outpatient (CLI) | payer MEDICARE, OTHER | END | disposition home or self-care (01) | LOC: Rad HDHVI 11:47 | PROVIDERS: ATTEND Internal Medicine Cardiovascular Disease | DX: M50.30 Other cervical disc degeneration, unspecified cervical region (principal); R20.0 Anesthesia of skin | CPT/HCPCS: 72040 ==

== ENCOUNTER → 2024-06-04 | Outpatient (CLI) | payer MEDICARE, OTHER ==
[~2024-06-04] MED LIST changes: +IOHEXOL 350 MG/ML 100ML IJ ONE
[2024-06-04 13:10] VITALS: BP 152/73; PULSE 62; RESP 18; O2SAT 98
[2024-06-04] MEDS: SODIUM CHLORIDE 0.9% 500 ML IV ONE (13:10)
[2024-06-04 15:23] VITALS: BP 154/73; PULSE 59; RESP 16; O2SAT 98
== END | disposition home or self-care (01) ==
LOC: Rad HDHVI 13:01
PROVIDERS: ATTEND Internal Medicine Cardiovascular Disease
DX: R91.1 Solitary pulmonary nodule (principal); I51.7 Cardiomegaly; K44.9 Diaphragmatic hernia without obstruction or gangrene; I71.9 Aortic aneurysm of unspecified site, without rupture
CPT/HCPCS: 71275; G0463; Q9967

== ENCOUNTER → 2025-02-08 | Outpatient (CLI) | payer MEDICARE, OTHER ==
[~2025-02-08] MED LIST changes: +ADENOSINE 90 MG/30 ML INJ IV ONE; -IOHEXOL 350 MG/ML 100ML IJ ONE
== END | disposition home or self-care (01) ==
LOC: Rad HDHVI 08:49
PROVIDERS: ATTEND Internal Medicine Cardiovascular Disease
DX: I08.3 Combined rheumatic disorders of mitral, aortic and tricuspid valves (principal); I11.9 Hypertensive heart disease without heart failure; E78.5 Hyperlipidemia, unspecified
CPT/HCPCS: 93306

== ENCOUNTER → 2025-02-09 | Outpatient (CLI) | payer MEDICARE, OTHER ==
[~2025-02-09] VITALS: Ht 180.3 cm; Wt 72.6 kg
[~2025-02-09] MED LIST changes: +ADENOSINE 61 MG in GIVE UN-DILUTED 0 ML IV ONE
== END | disposition home or self-care (01) ==
LOC: Rad HDHVI 08:05
PROVIDERS: ATTEND Internal Medicine Cardiovascular Disease
DX: I49.3 Ventricular premature depolarization (principal); I11.0 Hypertensive heart disease with heart failure; I50.43 Acute on chronic combined systolic (congestive) and diastolic (congestive) heart failure; I25.10 Atherosclerotic heart disease of native coronary artery without angina pectoris; I71.20 Thoracic aortic aneurysm, without rupture, unspecified; I35.0 Nonrheumatic aortic (valve) stenosis; E11.9 Type 2 diabetes mellitus without complications; E78.00 Pure hypercholesterolemia, unspecified; R07.89 Other chest pain; R06.02 Shortness of breath; Z95.1 Presence of aortocoronary bypass graft; Z82.49 Family history of ischemic heart disease and other diseases of the circulatory system
CPT/HCPCS: 78452; 93017; A9500; J0153

== ENCOUNTER 2025-06-20 12:28 | Inpatient (IN) | payer MEDICARE, OTHER ==
[~2025-06-20] VITALS: Ht 180.3 cm; Wt 76.3 kg
[~2025-06-20 12:28] MED LIST changes: -ADENOSINE 61 MG in GIVE UN-DILUTED 0 ML IV ONE; -ADENOSINE 90 MG/30 ML INJ IV ONE
--- NOTE | 2025-06-20 12:44 | ED.PDOC ---
HPI Comments This is a 84 year old male LIAM presenting to the ED with chief complaint of chest pain. Patient reports that he has been experiencing substernal chest tightness with radiation to his back and bilateral shoulders since 914 today. Patient relays that he has had similar symptoms in the past. EMS states patient's initial BP was noted to be 186/90, improving to 129/67. Patient is currently on Plavix and his repair servicer is Dr. Hutchinson. Patient denies any cough, congestion, dizziness, headache, N/V, or SOB. Chief Complaint: Chest Pain Time Seen by MD: 12:41 Primary Care Provider: TAM Reviewed Notes: Nurses Notes, Medications, Allergies Allergies: Coded Allergies: No Known Drug Allergy (Verified Allergy, Unknown, 11/13/20) Home Meds Reported Medications Cinnamon Bark (Cinnamon) Unknown Strength Cap, PO DAILY, CAP 05/09/20 Allium Sativan Extract (GARLIC) Unknown Strength Tab, PO DAILY, TAB 05/09/20 Bioflavanoid Products (C Complex) Unknown Strength Tab, PO DAILY, TAB 05/09/20 Cyanocobalamin (Vitamin B12) Unknown Strength Tab, PO DAILY, TAB 05/09/20 Aspirin (Asa) 81 Mg Ch, 81 MG CHEW DAILY, TAB.CHEW 05/09/20 Sacubitril-Valsartan (Entresto 24-26 mg) 1 Tab Tab, 1 TAB PO BID, TAB 05/09/20 Glimepiride (Glimepiride) 2 Mg Tab, 2 MG PO DAILY for 30 Days, MG 11/23/19 Metformin Hydrochloride (Metformin Hcl) 500 Mg Tab, 1000 MG PO BID for 30 Days, MG 11/23/19 Clopidogrel Bisulfate (Plavix) 75 Mg Tab, 75 MG PO DAILY, TAB 11/23/19 Information Source: Patient, Emergency Med Personnel Mode of Arrival: EMS Severity: Moderate Timing: Hours Duration: Since onset Prehospital treatment: None Location: Substernal Radiation: Back, Shoulder (R), Shoulder (L) Quality: Sharp Onset: At Rest Cardiac Risk Factors: HTN, Diabetes History of: Similar pain in past Past Medical History PAST MEDICAL HISTORY: CHF, DM, HTN Surgical History: CABG, Hernia Repair, PTCA, Tonsillectomy Family History Family History: Reviewed,noncontributory to illness, Family hx of DM Social History Smoker: Non-Smoker Alcohol: Rarely Drugs: Denies Drug Use Lives In: Home Constitutional: denies: chills, diaphoresis, fatigue, fever, malaise, sweats, weakness, others EENTM: denies: blurred vision, double vision, ear bleeding, ear discharge, ear drainage, ear pain, ear ringing, eye pain, eye redness, hearing loss, mouth pain, mouth swelling, nasal discharge, nose bleeding, nose congestion, nose pain, photophobia, tearing, throat pain, throat swelling, voice changes, others Respiratory: denies: cough, hemoptysis, orthopnea, SOB at rest, shortness of breath, SOB with excertion, stridor, wheezing, others Cardiovascular: reports: chest pain; denies: dizzy spells, diaphoresis, Dyspnea on exertion, edema, irregular heart beat, left arm pain, lightheadedness, palpitations, PND, syncope, others Gastrointestinal: denies: abdomen distended, abdominal pain, blood streaked bowels, constipated, diarrhea, dysphagia, difficulty swallowing, hematemesis, melena, nausea, poor appetite, poor fluid intake, rectal bleeding, rectal pain, vomiting, others Genitourinary: denies: burning, dysuria, flank pain, frequency, hematuria, incontinence, penile discharge, penile sore, pain, testicle pain, testicle swelling, urgency, others Neurological: denies: dizziness, fainting, headache, left sided numbness, left sided weakness, numbness, paresthesia, pre-existing deficit, right sided numbness, right sided weakness, seizure, speech problems, tingling, tremors, weakness, others Musculoskeletal: denies: back pain, gout, joint pain, joint swelling, muscle pain, muscle stiffness, neck pain, others Integumetry: denies: bruises, change in color, change in hair/nails, dryness, laceration, lesions, lumps, rash, wounds, others Allergic/Immunocompromised: denies: Difficulty Healing, Frequent Infections, Hives, Itching, others Hematologic/Lymphatic: denies: anemia, blood clots, easy bleeding, easy bruising, swollen glands, others Endocrine: denies: excessive hunger, excessive sweating, excessive thirst, excessive urination, flushing, intolerance to cold, intolerance to heat, unexplained weight gain, unexplained weight loss, others Psychiatric: denies: anxiety, bipolar disorder, depression, hopeless, panic disorder, schizophrenia, sleepless, suicidal, others All Other Systems: Reviewed and Negative Physical Exam General Appearance: No Apparent Distress, Normal HEENT: Normal ENT Inspection, Pharynx Normal, TMs Normal Neck: Full Range of Motion, Non-Tender, Normal, Normal Inspection Respiratory: Chest Non-Tender, Lungs Clear, No Accessory Muscle Use, No Respiratory Distress, Normal Breath Sounds Cardiovascular: No Edema, No JVD, No Murmur, No Gallop, Normal Peripheral Pulses, Regular Rate/Rhythm Breast Exam: Deferred Gastrointestinal: No Organomegaly, Non Tender, No Pulsatile Mass, Normal Bowel Sounds, Soft Genitalia: Deferred Pelvic: Deferred Rectal: Deferred Extremities: No calf tenderness, Normal capillary refill, Normal inspection, Normal range of motion, Non-tender, No pedal edema Musculoskeletal : Apperance: Normal Neurologic: Alert, cathodic protection technician II-XII nml as Tested, No Motor Deficits, Normal Affect, Normal Mood, No Sensory Deficits Cerebellar Function: Normal Reflexes: Normal Skin: Dry, Normal Color, Warm Lymphatic: No Adenopathy Was a procedure done? Was a procedure done?: No CP Differential Dx Differential Diagnosis: Hyperventilation, Hypoxia, MAT Differential Diagnosis: HTN Essential, HTN Accelerated, Medical NonCompliance Differential Diagnosis: Gastritis, Myocardial Infarction, Pericarditis X-Ray, Labs, Meds, VS Vital Signs Date Time Temp Pulse Resp B/P (MAP) Pulse Ox O2 Delivery O2 Flow Rate FiO2 06/20/25 16:24 98.3 70 17 168/75 (106) 98 98.3 06/20/25 15:33 63 06/20/25 13:21 68 06/20/25 12:31 67 06/20/25 12:28 98.7 63 18 129/67 96 98.7 Lab Test 06/20/25 15:05 06/20/25 12:48 Range/Units Troponin I High Sensitivity 15 14 </=54 ng/L White Blood Count 10.8 4.4-10.8 10^3/uL Red Blood Count 3.96 L 4.5-5.90 10^6/uL Hemoglobin 12.0 L 13.5-17.5 g/dL Hematocrit 35.6 L 41.0-53.0 % Mean Corpuscular Volume 89.8 80.0-100.0 fL Mean Corpuscular Hemoglobin 30.4 28.0-32.0 pg Mean Corpuscular Hemoglobin Concent 33.8 32.0-36.0 g/dL Red Cell Distribution Width 14.0 11.8-14.3 % Platelet Count 243 140-450 10^3/uL Mean Platelet Volume 7.5 6.9-10.8 fL Neutrophils (%) (Auto) 78.4 37.0-80.0 % Lymphocytes (%) (Auto) 10.6 10.0-50.0 % Monocytes (%) (Auto) 6.8 0.0-12.0 % Eosinophils (%) (Auto) 3.8 0.0-7.0 % Basophils (%) (Auto) 0.4 0.0-2.0 % Neutrophils # (Auto) 8.4 1.6-8.6 10 ^3/uL Lymphocytes # (Auto) 1.1 0.4-5.4 10 ^3/uL Monocytes # (Auto) 0.7 0-1.3 10 ^3/uL Eosinophils # (Auto) 0.4 0-0.8 10 ^3/uL Basophils # (Auto) 0 0-0.2 10 ^3/uL Nucleated Red Blood Cells 0.0 % Sodium Level 142 136-145 mmol/L Potassium Level 4.5 3.5-5.1 mmol/L Chloride Level 106 98-107 mmol/L Carbon Dioxide Level 25 20-31 mmol/L Anion Gap 11 5-15 Blood Urea Nitrogen 37 H 9-23 mg/dL Creatinine 1.32 H 0.700-1.30 mg/dL Glomerular Filtration Rate Calc 53 >90 mL/min BUN/Creatinine Ratio 28.0 H 10.0-20.0 Serum Glucose 137 H 74-106 mg/dL Calcium Level 9.5 8.7-10.4 mg/dL B-Type Natriuretic Peptide 540.86 0-100 pg/mL Time of 1ST Reevaluation: 16:35 Reevaluation 1ST: Improved Patient Education/Counseling: Diagnosis, Treatment Family Education/Counseling: No Family Present SEPSIS Sepsis Screen Physician Orders Electrocardigram (06/20/25 12:33) Electrocardigram (06/20/25 13:33) Electrocardigram (06/20/25 15:33) Chest Portable (06/20/25 12:35) Troponin-I Hs (06/20/25 15:35) Vital Signs Date Time Temp Pulse Resp B/P (MAP) Pulse Ox O2 Delivery O2 Flow Rate FiO2 06/20/25 16:24 98.3 70 17 168/75 (106) 98 98.3 06/20/25 15:33 63 06/20/25 13:21 68 06/20/25 12:31 67 06/20/25 12:28 98.7 63 18 129/67 96 98.7 Laboratory Tests Test 06/20/25 12:48 White Blood Count 10.8 10^3/uL (4.4-10.8) Departure 1 Departure Time of Disposition: 16:34 (Patient presented with chest pain that was concerning for possible STEMI, ACS, PE, Pneumonia, Muscle Strain, COPD, Dissection. Data: 1. I ordered and reviewed the result of at least 3 labs including a CBC, BMP, and Troponin. 2. I independently interpreted the following tests: EKG which shows cardiac arrhythmia and Chest X-ray which shows benign chest.Risk:This patient has a high risk of morbidity due to further diagnostic testing or treatment and may suffer from an acute cardiac or respiratory disorder. Workup reveals concern for ACS and patient should be admitted for further workup and possible expert consultation. ) Impression: Primary Impression: Acute chest pain Disposition: 09 ADMITTED INPATIENT Admit to: Tele Condition: Guarded Critical Care Note Critical Care Time?: Yes (35 min-critical care time only) Critical care comment: Acute chest pain Authorized and Performed by: Gaye Dorsey MD Total critical care time: Approximately 39 minutes Due to a high probability of clinically significant, life threatening de terioration, the patient required my highest level of preparedness to intervene emergently and I personally spent this critical care time directly and personally managing the patient. This critical care time included obtaining a history; examining the patient; pulse oximetry; ordering and review of studies; arranging urgent treatment with development of a management plan; evaluation of patient's response to treatment; frequent reassessment; and, discussions with other providers. This critical care time was performed to assess and manage the high probability of imminent, life-threatening deterioration that could result in multi-organ failure. It was exclusive of separately billable procedures and treating other patients and teaching time. Please see my other sections and the rest of the note for further information on patient assessment and treatment. Stability Stability form required: No Heart Score Heart Score: Heart Score Response (Comments) Value History Highly Suspicious 2 EKG Normal 0 Age >65 2 Risk Factors >3 or Hx ASHD 2 Troponin 1-2 x's Normal limit 1 Total 7 I personally scribed for GAYE DORSEY MD ([email or web address]) on 06/20/25 at 12:44. Electronically submitted by Elan Maier ([email or web address]). GAYE DORSEY MD Jun 20, 2025 12:44
[2025-06-20 13:21] LABS: Hematocrit 35.6 % (41.0-53.0); Hemoglobin 12.0 g/dL (13.5-17.5); Mean Corpuscular Hemoglobin 30.4 pg (28.0-32.0); Mean Corpuscular Volume 89.8 fL (80.0-100.0); Nucleated Red Blood Cells % 0.0 %
--- NOTE | 2025-06-20 13:21 | DVH ---
CHEST RADIOGRAPH Indication: chest pain Technique: Single frontal view of the chest was obtained Comparison: None FINDINGS: Lines and Tubes: Sternal wire sutures are in place from what appears to be a previous coronary artery bypass graft with numerous surgical clips in place. Lungs: No focal consolidation. Pleura: No effusion. No pneumothorax. Cardiomediastinal contours: Unremarkable Bones: No acute osseous abnormality. IMPRESSION: 1. No acute cardiopulmonary disease. Postop changes from coronary artery bypass graft. 2. No prior studies for comparison.
[2025-06-20 13:29] LABS: Chloride 106 mmol/L (98-107); Potassium 4.5 mmol/L (3.5-5.1); Sodium 142 mmol/L (136-145)
[2025-06-20 13:30] LABS: Anion Gap 11 (5-15); Carbon Dioxide 25 mmol/L (20-31)
[2025-06-20 13:31] LABS: Calcium 9.5 mg/dL (8.7-10.4)
[2025-06-20 13:36] LABS: BUN/Creatinine Ratio 28.0 (10.0-20.0); Blood Urea Nitrogen 37 mg/dL (9-23); Glucose 137 mg/dL (74-106)
[2025-06-20] MEDS ORDERED: NITROGLYCERIN 0.4 MG SL TAB SL PRN (19:45)
[2025-06-20] MEDS ORDERED: ONDANSETRON HCL 4 MG/2 ML VIAL IV PRN (19:45)
[2025-06-20] MEDS ORDERED: DEXTROSE (50%) 50ML SYRG IV PRN (19:45)
[2025-06-20] MEDS ORDERED: ACETAMINOPHEN 325 MG TAB PO PRN (19:45)
[2025-06-20] MEDS ORDERED: MORPHINE SULFATE 4 MG/ML SYR/VIAL IV PRN (20:30)
[2025-06-20] MEDS: InsuLIN REG 1unit/0.01ml Soln (100units/ml) SC SCH (22:00)
--- NOTE | 2025-06-20 22:05 | DVHHP2 ---
History of Present Illness Reason for Visit: Chest pain History of Present Illness 84-year-old male presents for evaluation of chest pain. Patient endorses a one day history of substernal pressure-like chest pain that radiates to his back. He reports mild shortness for breath. No nausea or vomiting. Currently rates the pain at 3/10 intensity. Past Medical History Hypertension, diabetes mellitus, CHF Past Surgical History PTCA, tonsillectomy, hernia repair, CABG Family History Noncontributory Smoke: No ALCOHOL: occassional Lives: with Family Review of Systems Review of Systems Review of systems are currently negative otherwise addressed in HPI. Allergies: Coded Allergies: No Known Drug Allergy (Verified Allergy, Unknown, 11/13/20) Medications Current Medications Medications Dose Ordered Sig/Marilyn Route Start Time Stop Time Status Last Admin Dose Admin Metoprolol Succinate 25 mg DAILY PO 06/21/25 10:00 Aspirin 81 mg DAILY PO 06/21/25 10:00 Clopidogrel Bisulfate 75 mg DAILY PO 06/21/25 10:00 Sacubitril/ Valsartan 1 tab BID PO 06/20/25 22:00 Diagnostic Test (Pha) 1 strip ACHS 06/20/25 22:00 Insulin Human Regular ACHS SC 06/20/25 22:00 Dextrose 50 ml UD PRN IV 06/20/25 19:45 Ondansetron HCl 4 mg Q4HP PRN IV 06/20/25 19:45 Acetaminophen 650 mg Q6HP PRN PO 06/20/25 19:45 Nitroglycerin 0.4 mg Q5MINP PRN SL 06/20/25 19:45 Morphine Sulfate 2 mg Q30M PRN IV 06/20/25 20:30 Exam Vital Signs Vital Signs Date Time Temp Pulse Resp B/P (MAP) Pulse Ox O2 Delivery O2 Flow Rate FiO2 06/20/25 16:24 98.3 70 17 168/75 (106) 98 98.3 Exam Gen: 84-year-old male in mild distress Skin: Warm, dry, normal color and texture, no rash. HEENT: Normocephalic atraumatic, mucous membranes moist and pink. Neck: Cervical and supraclavicular nodes normal without enlargement, trachea is midline, thyroid gland is normal without masses. Pulmonary: Clear to auscultation and percussion bilaterally. Cardiac: Regular rate and rhythm. No murmur Abdomen: Soft, nontender, nondistended, bowel sounds present all 4 quadrants, no guarding, no rigidity, no organomegaly. Extremities: No cyanosis, clubbing, no edema Neuro: Cranial nerves II through XII grossly intact, normal affect and speech, no focal motor deficits. Labs/Xrays ORDERING PHYSICIAN: GAYE MCCAULEY MD PROCEDURE(s): CXRP - CHEST PORTABLE REASON: chest pain ORDER NUMBER(s): [id number], ACCESSION NUMBER(s): [id number] CHEST RADIOGRAPH Indication: chest pain Technique: Single frontal view of the chest was obtained Comparison: None FINDINGS: Lines and Tubes: Sternal wire sutures are in place from what appears to be a previous coronary artery bypass graft with numerous surgical clips in place. Lungs: No focal consolidation. Pleura: No effusion. No pneumothorax. Cardiomediastinal contours: Unremarkable Bones: No acute osseous abnormality. IMPRESSION: 1. No acute cardiopulmonary disease. Postop changes from coronary artery bypass graft. 2. No prior studies for comparison. Labs Test 06/20/25 16:50 06/20/25 12:48 Range/Units Troponin I High Sensitivity 15 </=54 ng/L White Blood Count 10.8 4.4-10.8 10^3/uL Red Blood Count 3.96 L 4.5-5.90 10^6/uL Hemoglobin 12.0 L 13.5-17.5 g/dL Hematocrit 35.6 L 41.0-53.0 % Mean Corpuscular Volume 89.8 80.0-100.0 fL Mean Corpuscular Hemoglobin 30.4 28.0-32.0 pg Mean Corpuscular Hemoglobin Concent 33.8 32.0-36.0 g/dL Red Cell Distribution Width 14.0 11.8-14.3 % Platelet Count 243 140-450 10^3/uL Mean Platelet Volume 7.5 6.9-10.8 fL Neutrophils (%) (Auto) 78.4 37.0-80.0 % Lymphocytes (%) (Auto) 10.6 10.0-50.0 % Monocytes (%) (Auto) 6.8 0.0-12.0 % Eosinophils (%) (Auto) 3.8 0.0-7.0 % Basophils (%) (Auto) 0.4 0.0-2.0 % Neutrophils # (Auto) 8.4 1.6-8.6 10 ^3/uL Lymphocytes # (Auto) 1.1 0.4-5.4 10 ^3/uL Monocytes # (Auto) 0.7 0-1.3 10 ^3/uL Eosinophils # (Auto) 0.4 0-0.8 10 ^3/uL Basophils # (Auto) 0 0-0.2 10 ^3/uL Nucleated Red Blood Cells 0.0 % Sodium Level 142 136-145 mmol/L Potassium Level 4.5 3.5-5.1 mmol/L Chloride Level 106 98-107 mmol/L Carbon Dioxide Level 25 20-31 mmol/L Anion Gap 11 5-15 Blood Urea Nitrogen 37 H 9-23 mg/dL Creatinine 1.32 H 0.700-1.30 mg/dL Glomerular Filtration Rate Calc 53 >90 mL/min BUN/Creatinine Ratio 28.0 H 10.0-20.0 Serum Glucose 137 H 74-106 mg/dL Calcium Level 9.5 8.7-10.4 mg/dL B-Type Natriuretic Peptide 540.86 0-100 pg/mL SEPSIS Sepsis Screen Date sepsis recognized/suspect: Jun 20, 2025 Time Sepsis recognized/suspect: 7 Recent Procedure: No On Antibiotic Therapy: No Respiratory Rate >20: No Heart Rate >90: No Temp<36 C (96.8 F) or >38.3 C: No SBP <90 or MAP <65 mmHG: No New Acute Mental Status Change: No Is the patient on CPAP, BIPAP,: No Physician Orders Metoprolol Xl Succinate (Toprol Xl) (06/21/25 10:00) Aspirin Tablet (06/21/25 10:00) Clopidogrel Bisulfate (Plavix) (06/21/25 10:00) Sacubitril-Valsartan (Entresto 24-26 Mg (06/20/25 22:00) * Cardiology Consult (06/20/25 19:39) Basic Metabolic Panel (06/21/25 04:00) Glucose Blood (Accu-Chek Comfort Curve T (06/20/25 22:00) Insulin R (Human) (Insulin R) (06/20/25 22:00) Dextrose 50% Syringe (06/20/25 19:45) Admit (06/20/25 19:39) Ondansetron Hcl (Zofran) (06/20/25 19:45) Cardiac Diet-2gna,Lofat,Lochol (06/21/25 Breakfast) Condition: Fair (06/20/25 19:39) Acetaminophen Tablet (Tylenol Tablet) (06/20/25 19:45) Bedrest With Bathroom Privileg (06/20/25:39) Nitroglycerin Sublingual (Ntrostat Subli (06/20/25 19:45) Stat Ekg For Chest Pain (06/20/25:39) Notify Of Changes From Base (06/20/25 19:39) 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 (06/20/25 19:39) Emergency Dysrhythmia Protocol (06/20/25 19:39) Rhythm Strips Once Every Shift (06/20/25 19:39) Oxygen By Nasal Cannula (06/20/25:39) Morphine Sulfate Injection (06/20/25 20:30) Vital Signs Date Time Temp Pulse Resp B/P (MAP) Pulse Ox O2 Delivery O2 Flow Rate FiO2 06/20/25 16:24 98.3 70 17 168/75 (106) 98 98.3 06/20/25 15:33 63 Laboratory Tests Test 06/20/25 12:48 White Blood Count 10.8 10^3/uL (4.4-10.8) Assessment/Plan Assessment/Plan Assessment Chest pain rule out ACS Diabetes mellitus Status post CABG Hypertension Plan Admit the patient to telemetry to the hospitalist Cardiology consultation ACS protocol Resume home medications Continue treatment per orders. Plan discussed with: Patient My Orders Orders - JORGE TAYLOR Procedure Category Date Status Time Metoprolol Xl PHA 06/21/25 In Process Succinate (Toprol Xl) 10:00 Aspirin Tablet PHA 06/21/25 In Process 10:00 Clopidogrel Bisulfate PHA 06/21/25 In Process (Plavix) 10:00 Sacubitril-Valsartan PHA 06/20/25 In Process (Entresto 24-26 Mg 22:00 * Cardiology Consult CONS 06/20/25 Transmitted 19:39 Basic Metabolic Panel LAB 06/21/25 Verified 04:00 Glucose Blood PHA 06/20/25 In Process (Accu-Chek Comfort 22:00 Insulin R (Human) PHA 06/20/25 In Process (Insulin R) 22:00 Dextrose 50% Syringe PHA 06/20/25 In Process 19:45 Admit ADMIT 06/20/25 Transmitted 19:[address] [facility] 06/20/25 In Process (Zofran) 19:45 Cardiac DIET 06/21/25 Transmitted Diet-2gna,Lofat,Lochol Breakfast Condition: Fair [facility] 06/20/25 In Process 19:[address] [facility] 06/20/25 In Process (Tylenol Tablet) 19:45 Bedrest With Bathroom [facility] 06/20/25 In Process Privileg 19:[address] 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 06/20/25 In Process Injection 20:30 Date of Service: Jun 20, 2025 Billing Provider: JORGE TAYLOR Common Visit Codes: [id number] INP/OBS CARE (HIGH) JORGE TAYLOR Jun 20, 2025 22:05
[2025-06-20 23:51] VITALS: BP 151/71; PULSE 60; RESP 17; TEMP 98.2; O2SAT 99
[2025-06-20] MEDS ORDERED: MET25T PO (23:59)
[2025-06-21] VITALS (7 sets, daily range): BP systolic 116–159; BP diastolic 53–82; PULSE 58–73; RESP 17–18; TEMP 97.8–99; O2SAT 97–100
[2025-06-21] MEDS: SACUBITRIL-VALSARTAN 24mg/26mg TAB PO SCH (00:35)
[2025-06-21] MEDS: ACCU-CHEK COMFORT CURVE STRIP VI SCH (00:37)
--- NOTE | 2025-06-21 00:56 | DVHINCON2 ---
Date of service: Jun 20, 2025 Referring Physician Vick Reason for Consultation Chest pain History of Present Illness This is a 84 year old male with a PMH of CHF, DM, HTN who is brought in by EMS with c/o chest pain. Patient reports that he has been experiencing substernal chest tightness with radiation to his back and bilateral shoulders since 0915 today. Patient relays that he has had similar symptoms in the past. EMS states patient's initial BP was noted to be 186/90, improving to 129/67. 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 BNP is 540.86. Troponin is negative x3. BUN 37, Usability Engineer 1.32. CBC is unremarkable. Chest x-ray shows NAD EKG shows cardiac arrhythmia. Patient was admitted to the hospital. I am asked to consult on this patient. Family History: Diabetes mellitus Allergies: Coded Allergies: No Known Drug Allergy (Verified Allergy, Unknown, 11/13/20) Home Meds Reported Medications Metoprolol Tartrate (Lopressor) 25 Mg Tb, 1 TAB PO QAM 06/20/25 Cinnamon Bark (Cinnamon) Unknown Strength Cap, PO DAILY, CAP 05/09/20 Allium Sativan Extract (GARLIC) Unknown Strength Tab, PO DAILY, TAB 05/09/20 Bioflavanoid Products (C Complex) Unknown Strength Tab, PO DAILY, TAB 05/09/20 Cyanocobalamin (Vitamin B12) Unknown Strength Tab, PO DAILY, TAB 05/09/20 Aspirin (Asa) 81 Mg Ch, 81 MG CHEW DAILY, TAB.CHEW 05/09/20 Sacubitril-Valsartan (Entresto 24-26 mg) 1 Tab Tab, 1 TAB PO BID, TAB 05/09/20 Glimepiride (Glimepiride) 2 Mg Tab, 2 MG PO DAILY for 30 Days, MG 11/23/19 Metformin Hydrochloride (Metformin Hcl) 500 Mg Tab, 500 MG PO BID for 30 Days, MG 11/23/19 Clopidogrel Bisulfate (Plavix) 75 Mg Tab, 75 MG PO DAILY, TAB 11/23/19 Current Medications Current Medications Medications (Trade) Dose Ordered Sig/Marilyn Route PRN Reason Start Time Stop Time Status Last Admin Metoprolol Succinate (Toprol Xl) 25 mg DAILY PO 06/21/25 10:00 Aspirin 81 mg DAILY PO 06/21/25 10:00 Clopidogrel Bisulfate (Plavix) 75 mg DAILY PO 06/21/25 10:00 Sacubitril/ Valsartan (Entresto 24-26 Mg tab) 1 tab BID PO 06/20/25 22:00 Diagnostic Test (Pha) (Accu-Chek Comfort Curve T) 1 strip ACHS 06/20/25 22:00 Insulin Human Regular (InsuLIN R) ACHS SC 06/20/25 22:00 Dextrose 50 ml UD PRN IV Blood Sugar LESS THAN 60 06/20/25 19:45 Ondansetron HCl (Zofran) 4 mg Q4HP PRN IV NAUSEA / VOMITING 06/20/25 19:45 Acetaminophen (Tylenol Tablet) 650 mg Q6HP PRN PO PAIN SCALE 1-3 OR TEMP>100.4 06/20/25 19:45 Nitroglycerin (Ntrostat Sublingual) 0.4 mg Q5MINP PRN SL FOR CHEST PAIN 06/20/25 19:45 Morphine Sulfate 2 mg Q30M PRN IV FOR CHEST PAIN 06/20/25 20:30 Review of Systems Constitutional: denies: chills, diaphoresis, fatigue, fever, malaise, sweats, weakness, others EENTM: denies: blurred vision, double vision, ear bleeding, ear discharge, ear drainage, ear pain, ear ringing, eye pain, eye redness, hearing loss, mouth pain, mouth swelling, nasal discharge, nose bleeding, nose congestion, nose pain, photophobia, tearing, throat pain, throat swelling, voice changes, others Respiratory: denies: cough, hemoptysis, orthopnea, SOB at rest, shortness of breath, SOB with excertion, stridor, wheezing, others Cardiovascular: reports: chest pain; denies: dizzy spells, diaphoresis, Dyspnea on exertion, edema, irregular heart beat, left arm pain, lightheadedness, pal pitations, PND, syncope, others Gastrointestinal: denies: abdomen distended, abdominal pain, blood streaked bowels, constipated, diarrhea, dysphagia, difficulty swallowing, hematemesis, melena, nausea, poor appetite, poor fluid intake, rectal bleeding, rectal pain, vomiting, others Genitourinary: denies: burning, dysuria, flank pain, frequency, hematuria, incontinence, penile discharge, penile sore, pain, testicle pain, testicle swelling, urgency, others Neurological: denies: dizziness, fainting, headache, left sided numbness, left sided weakness, numbness, paresthesia, pre-existing deficit, right sided numbness, right sided weakness, seizure, speech problems, tingling, tremors, weakness, others Musculoskeletal: denies: back pain, gout, joint pain, joint swelling, muscle pain, muscle stiffness, neck pain, others Integumetry: denies: bruises, change in color, change in hair/nails, dryness, laceration, lesions, lumps, rash, wounds, others Allergic/Immunocompromised: denies: Difficulty Healing, Frequent Infections, Hives, Itching, others Hematologic/Lymphatic: denies: anemia, blood clots, easy bleeding, easy bru ising, swollen glands, others Endocrine: denies: excessive hunger, excessive sweating, excessive thirst, e xcessive urination, flushing, intolerance to cold, intolerance to heat, unexplained weight gain, unexplained weight loss, others Psychiatric: denies: anxiety, bipolar disorder, depression, hopeless, panic disorder, schizophrenia, sleepless, suicidal, others All Other Systems: Reviewed and Negative Vital Signs Vital Signs Date Time Temp Pulse Resp B/P (MAP) Pulse Ox O2 Delivery O2 Flow Rate FiO2 06/20/25 23:51 98.2 60 17 151/71 (97) 99 98.2 06/20/25 22:50 Room Air Physical Exam GENERAL: Alert and oriented x 3. No acute distress. EYES: PERRL, EOMI. Anicteric. HENT: Moist mucous membranes. LUNGS: Clear to auscultation bilaterally. CARDIOVASCULAR: Regular rate and rhythm. ABDOMEN: Soft, non-tender and non-distended. EXTREMITIES: No edema. NEUROLOGIC: No focal neurological deficits. SKIN: Warm, dry. Labs/Diagnostic Data Labs Test 06/20/25 23:47 06/20/25 16:50 06/20/25 12:48 Range/Units POC Glucose 171 H 70-106 mg/dl Troponin I High Sensitivity 15 </=54 ng/L White Blood Count 10.8 4.4-10.8 10^3/uL Red Blood Count 3.96 L 4.5-5.90 10^6/uL Hemoglobin 12.0 L 13.5-17.5 g/dL Hematocrit 35.6 L 41.0-53.0 % Mean Corpuscular Volume 89.8 80.0-100.0 fL Mean Corpuscular Hemoglobin 30.4 28.0-32.0 pg Mean Corpuscular Hemoglobin Concent 33.8 32.0-36.0 g/dL Red Cell Distribution Width 14.0 11.8-14.3 % Platelet Count 243 140-450 10^3/uL Mean Platelet Volume 7.5 6.9-10.8 fL Neutrophils (%) (Auto) 78.4 37.0-80.0 % Lymphocytes (%) (Auto) 10.6 10.0-50.0 % Monocytes (%) (Auto) 6.8 0.0-12.0 % Eosinophils (%) (Auto) 3.8 0.0-7.0 % Basophils (%) (Auto) 0.4 0.0-2.0 % Neutrophils # (Auto) 8.4 1.6-8.6 10 ^3/uL Lymphocytes # (Auto) 1.1 0.4-5.4 10 ^3/uL Monocytes # (Auto) 0.7 0-1.3 10 ^3/uL Eosinophils # (Auto) 0.4 0-0.8 10 ^3/uL Basophils # (Auto) 0 0-0.2 10 ^3/uL Nucleated Red Blood Cells 0.0 % Sodium Level 142 136-145 mmol/L Potassium Level 4.5 3.5-5.1 mmol/L Chloride Level 106 98-107 mmol/L Carbon Dioxide Level 25 20-31 mmol/L Anion Gap 11 5-15 Blood Urea Nitrogen 37 H 9-23 mg/dL Creatinine 1.32 H 0.700-1.30 mg/dL Glomerular Filtration Rate Calc 53 >90 mL/min BUN/Creatinine Ratio 28.0 H 10.0-20.0 Serum Glucose 137 H 74-106 mg/dL Calcium Level 9.5 8.7-10.4 mg/dL B-Type Natriuretic Peptide 540.86 0-100 pg/mL Assessment Chest pain. Diabetes mellitus. Status post CABG. Hypertension. Plan/Recommendation I agree with your ongoing assessment and care of plan. Aspirin, Plavix, Metoprolol. Morphine for pain management. Nitro SL. Entresto. Additional plan as per the hospital course. A total of 45 minutes was spent reviewing the patient record, examining the patient, making a diagnostic and therapeutic plan, discussing this plan with medical personnel, following up on diagnostic studies and following the patient for clinical stability excluding any and all procedures. At least 50% of this time was spent in direct, [id number] contact. Plan discussed with: Patient CIARRA ZAPATA MD Jun 21, 2025 00:56
[2025-06-21 06:47] LABS: Chloride 106 mmol/L (98-107); Potassium 3.9 mmol/L (3.5-5.1); Sodium 140 mmol/L (136-145)
[2025-06-21 06:48] LABS: Anion Gap 13 (5-15); Calcium 8.9 mg/dL (8.7-10.4); Carbon Dioxide 21 mmol/L (20-31)
[2025-06-21 06:54] LABS: BUN/Creatinine Ratio 19.5 (10.0-20.0); Blood Urea Nitrogen 22 mg/dL (9-23); Glucose 128 mg/dL (74-106)
[2025-06-21] MEDS: METOPROLOL SUCCINATE XL 50 MG TAB PO SCH (10:23)
[2025-06-21] MEDS: CLOPIDOGREL BISULFATE 75 MG TAB PO SCH (10:23)
--- NOTE | 2025-06-21 11:46 | ECG ---
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
[2025-06-21 14:35] LABS: INR 1.03 (0.9-1.15); Partial Thromboplastin Time 31.9 SEC (24.5-34.5); Prothrombin Time 10.9 sec (9.3-11.8)
[2025-06-21] MEDS: SODIUM CHLORIDE 0.9% 1,000 ML IV ONE (15:44)
--- NOTE | 2025-06-21 15:48 | DVH ---
CLINICAL HISTORY: Rul out DVT. Pain to left lower ext. TECHNIQUE: Color and duplex doppler imagine of the bilateral lower extremity veins was performed. Vessel compression and augmentation if possible was also performed. COMPARISON: None FINDINGS: Right Lower Extremity: Right common femoral vein: Normal compressibility and flow. Right superficial femoral vein: Normal compressibility and flow. Right popliteal vein: Normal compressibility and flow. Left Lower Extremity: Left common femoral vein: Normal compressibility and flow. Left superficial femoral vein: Normal compressibility and flow. Left popliteal vein: Normal compressibility and flow. IMPRESSION: NO SONOGRAPHIC EVIDENCE FOR DEEP VENOUS THROMBOSIS IN THE BILATERAL LOWER EXTREMITY VEINS.
--- NOTE | 2025-06-21 15:48 | DVHPN2 ---
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 Left main patent. 2. Left anterior descending artery was occluded. 3. DAVILA to the LAD was patent, was giving retrograde flow into the first diagonal as well. 4. Circumflex artery with moderate diffuse disease without any flow-restrictive lesion. 5. Saphenous vein graft to the OM was occluded. 6. RCA was occluded. 7. Saphenous vein graft to the PDA was occluded. 8. The patient with bridging collaterals from the circumflex territory providing collateral circulation to the PDA territory. 9. Left ventricular function shows mild global hypokinesis with an estimated EF around 45-50% with an LVEDP of 10 mmHg with no gradient across the aortic valve. At this time, no catheter-based or surgical intervention is warranted. The patient should aggressively be treated. His hypertension is essentially stress related. Once the patient is sedated his blood pressure has been maintained at around 114 systolic with a diastolic of 60. PMH; PERTINENT MEDICAL HISTORY: 1. Significant for organic heart disease. A. Coronary artery disease. B. Status post coronary artery bypass grafting with DAVILA to the LAD, saphenous vein graft to the OM, saphenous vein graft to the PDA. 2. Anxiety disorder problem. 3. Organic brain syndrome. 4. Hypertension. 5. Hyperlipidemia. 6. Osteoarthritis. FAMILY HISTORY: Negative. SOCIAL HISTORY: No alcohol or tobacco use other than the fact that the patient is a [employer]. I had a lengthy discussion with the family members about his overall condition. His memory is rapidly fading. The patient has high anxiety at this time and is incapable of making any decision in a timely manner. He vacillates quite a bit. He denies any fever or chills. No dyspnea. He has not traveled outside the country nor outside the state. He is COVID negative. No pulmonary symptomatology such as fever, chills, productive cough. No history of CVA. CT recently done shows no evidence of any TIA, seizure activity nor any acute event. He has no difficulty swallowing and eating, even though his appetite is suppressed because of depression. He denies any abdominal discomfort. No hematemesis. No hemoptysis, no hematuria. No evidence for melena, hematochezia. He has no bleeding diathesis. Because he is [employer] he cannot get any blood products. The risks and benefits were explained to the patient because of his inability to get any blood products. Musculoskeletal review is unremarkable as well. vital signs Vital Sign Date Time Temp Pulse Resp B/P (MAP) Pulse Ox O2 Delivery O2 Flow Rate FiO2 06/21/25 13:52 Room Air* 0 21 06/21/25 13:00 97.8 58 18 154/71 (98) 100 97.8 medications Current Medications Medications Dose Ordered Sig/Marilyn Route Start Time Stop Time Status Last Admin Dose Admin Metoprolol Succinate 25 mg DAILY PO 06/21/25 10:00 06/21/25 10:23 25 MG Aspirin 81 mg DAILY PO 06/21/25 10:00 06/21/25 10:23 81 MG Clopidogrel Bisulfate 75 mg DAILY PO 06/21/25 10:00 06/21/25 10:23 75 MG Sacubitril/ Valsartan 1 tab BID PO 06/20/25 22:00 06/21/25 10:23 1 TAB Diagnostic Test (Pha) 1 strip ACHS 06/20/25 22:00 06/21/25 12:53 1 STRIP Insulin Human Regular ACHS SC 06/20/25 22:00 Dextrose 50 ml UD PRN IV 06/20/25 19:45 Ondansetron HCl 4 mg Q4HP PRN IV 06/20/25 19:45 Acetaminophen 650 mg Q6HP PRN PO 06/20/25 19:45 Nitroglycerin 0.4 mg Q5MINP PRN SL 06/20/25 19:45 Morphine Sulfate 2 mg Q30M PRN IV 06/20/25 20:30 objective PHYSICAL EXAMINATION: VITAL SIGNS: Blood pressure is 114/80, pulse of 60 and regular, temperature 98.2, respirations 20. HEENT: Pupils are reactive. Funduscopic exam is benign. No AV nicking. No exudates, no papilledema. Sclerae anicteric. Extraocular muscles are intact. Tympanic membranes are negative. Oral mucosa moist. Posterior pharynx without any exudates. NECK: Supple. No nuchal rigidity. No cervical adenopathy, no supraclavicular adenopathy, no axillary adenopathy. Thyroid is within normal limits as well. PULMONARY: Clear to auscultation. No rhonchi, no wheezes, no egophony, no E to A changes. Tympanic to percussion. CARDIOVASCULAR: Regular rate. PMI is slightly diffuse, laterally displaced ____ systolic murmur along the left sternal border without any radiation. PMI is not displaced. No S3, no S4 gallops appreciated. No clicks or rubs. ABDOMEN: Soft, nontender, normal bowel sounds. Stool guaiac is negative. Liver approximately 5 cm by percussion. Spleen tip nonpalpable. No epigastric tenderness. No suprapubic tenderness, no CVA tenderness. NEUROLOGIC: DTRs are 2+ symmetrical. Cranial nerves 2-12 within normal limits. The patient is oriented x 4. However, the patient's memory is failing rapidly and he has some confusion and agitation resulting in accelerated hypertension. MUSCULOSKELETAL: Unremarkable. laboratory and microbiology Laboratory Tests 06/21/25 05:57 06/20/25 12:48 Test 06/21/25 05:57 Range/Units Serum Glucose 128 H 74-106 mg/dL Problem List 1. Significant for organic heart disease. A. Coronary artery disease. B. Status post coronary artery bypass grafting with DAVILA to the LAD, saphenous vein graft to the OM, saphenous vein graft to the PDA. 2. Anxiety disorder problem. 3. Organic brain syndrome. 4. Hypertension. 5. Hyperlipidemia. 6. Osteoarthritis. NOW WITH CHEST PAIN ECG NEGATIVE TROPONIN NEGATIVE Assessment/Plan CONSERVATIVE MANAGEMENT CARDIOLITE NEGATIVE FOR ISCHEMIA Plan discussed with: Patient ISABELL CHARLES MD Jun 21, 2025 15:48
[2025-06-21] MEDS: IOHEXOL 350 MG/ML 100ML IJ ONE (16:47)
--- NOTE | 2025-06-21 16:56 | DVH ---
Indication: chest pain, rule out PE Technique: CT axial images of the chest are obtained with intravenous contrast per CT angiogram protocol. Coronal and sagittal reformats were obtained. Comparison: CT CT ANGIO CHEST CONTRAST on DOS: 06/04/24 FINDINGS: No filling defects in the main left right pulmonary arteries. Trachea is patent. No pneumothorax. Bilateral atelectasis. 4 mm Right upper lobe solid nodule. 3 mm right middle lobe solid nodule. 8 mm right lower lobe calcified nodule. 5 mm left upper lobe solid nodule. 8 mm left lower lobe solid nodule. 7 mm left lower lobe solid nodule. Heart is enlarged. Coronary artery calcification disease. Aortic atherosclerotic disease. Enlargement of the ascending aorta measuring 3.9 x 4.2 cm. Subcarinal lymph node measuring 12 mm. No supraclavicular, axillary lymphadenopathy. Splenic calcifications consistent with remote granulomatous disease. Pancreatic parenchymal atrophy and calcifications likely sequela of chronic pancreatitis changes. Moderate thoracic degenerative disc disease. IMPRESSION: No evidence for large pulmonary embolism. Pulmonary nodules measuring up to 8 mm. Recommend follow-up per Fleischner society criteria. Enlargement of the ascending aorta measuring 3.9 x 4.2 cm. Thoracic surgery consultation recommended for further management. Cardiomegaly. Coronary artery calcification disease. Postsurgical changes likely from CABG. Subcarinal/ mediastinal lymphadenopathy which can be secondary to infectious, inflammatory, neoplastic processes. Other findings as described.
--- NOTE | 2025-06-21 17:37 | DVHPN2 ---
Progress Note - Dictate Date Seen: Jun 21, 2025 Medical Necessity Reason Pt with a Central, PICC or Fol: No Subjective Patient was seen and evaluated in follow up. Patient is c/o chest discomfort. CTA chest is negative for PE. Pulmonary nodules measuring up to 8 mm, enlargement of the ascending aorta measuring 3.9 x 4.2 cm. Thoracic surgery consultation recommended for further management, cardiomegaly, coronary artery calcification disease. Postsurgical changes likely from CABG and subcarinal/ mediastinal lymphadenopathy which can be secondary to infectious, inflammatory, neoplastic processes. BLE Doppler is negative for DVT. Telemetry reviewed. vital signs Vital Sign Date Time Temp Pulse Resp B/P (MAP) Pulse Ox O2 Delivery O2 Flow Rate FiO2 06/21/25 10:23 67 134/63 06/21/25 09:00 98.2 17 97 98.2 06/20/25 22:50 Room Air medications Current Medications Medications Dose Ordered Sig/Marilyn Route Start Time Stop Time Status Last Admin Dose Admin Metoprolol Succinate 25 mg DAILY PO 06/21/25 10:00 06/21/25 10:23 25 MG Aspirin 81 mg DAILY PO 06/21/25 10:00 06/21/25 10:23 81 MG Clopidogrel Bisulfate 75 mg DAILY PO 06/21/25 10:00 06/21/25 10:23 75 MG Sacubitril/ Valsartan 1 tab BID PO 06/20/25 22:00 06/21/25 10:23 1 TAB Diagnostic Test (Pha) 1 strip ACHS 06/20/25 22:00 06/21/25 12:53 1 STRIP Insulin Human Regular ACHS SC 06/20/25 22:00 Dextrose 50 ml UD PRN IV 06/20/25 19:45 Ondansetron HCl 4 mg Q4HP PRN IV 06/20/25 19:45 Acetaminophen 650 mg Q6HP PRN PO 06/20/25 19:45 Nitroglycerin 0.4 mg Q5MINP PRN SL 06/20/25 19:45 Morphine Sulfate 2 mg Q30M PRN IV 06/20/25 20:30 objective GENERAL: Alert and oriented x 3. No acute distress. EYES: PERRL, EOMI. Anicteric. HENT: Moist mucous membranes. LUNGS: Clear to auscultation bilaterally. CARDIOVASCULAR: Regular rate and rhythm. ABDOMEN: Soft, non-tender and non-distended. EXTREMITIES: No edema. NEUROLOGIC: No focal neurological deficits. SKIN: Warm, dry. laboratory and microbiology Laboratory Tests 06/21/25 05:57 06/20/25 12:48 Test 06/21/25 05:57 Range/Units Serum Glucose 128 H 74-106 mg/dL Problem List Chest pain. Diabetes mellitus. Status post CABG. Hypertension. Coronary artery disease. Status post coronary artery bypass grafting with DAVILA to the LAD, saphenous. Anxiety disorder problem. Organic brain syndrome. Hyperlipidemia. Assessment/Plan Continued all current supportive medical care. Aspirin, Plavix, Metoprolol. Morphine for pain management. Nitro SL. Entresto. Additional plan as per the hospital course. Plan discussed with: Patient CIARRA ZAPATA MD Jun 21, 2025 13:11
[2025-06-22 01:00] VITALS: BP 143/73; PULSE 54; RESP 16; TEMP 98.2; O2SAT 98
[2025-06-22 05:00] VITALS: BP 141/75; PULSE 63; RESP 17; TEMP 97.7; O2SAT 97
[2025-06-22 08:00] VITALS: PULSE 66; RESP 17; O2SAT 97
[2025-06-22 08:38] VITALS: BP 135/87; PULSE 70; RESP 17; TEMP 97.9; O2SAT 97
--- NOTE | 2025-06-22 10:00 | ECG ---
[facility] Test Date: 2025-06-20 Test Time: 13:21:07 Pat Name: OLIVER CORNELL Department: Room: 0218T A Gender: M Wallet Assembler: JA : 1940 Requested By: GAYE MCCAULEY Order Number: [id number] Reading MD: Oscar Nino Measurements Intervals [place] Rate: 68 P: 72 [place]: 197 QRS: 76 QRSD: 120 T: 4 QT: 437 QTc: 465 Interpretive Statements Sinus rhythm Nonspecific intraventricular conduction delay Electronically Signed On 06-24-2025 15:39:47 PST by Oscar Nino Please click the below link to view image of tracing.
--- NOTE | 2025-06-22 10:01 | ECG ---
[facility] Test Date: 2025-06-20 Test Time: 15:33:43 Pat Name: OLIVER CORNELL Department: Room: 0218T A Gender: M Paramedic: JA : 1940 Requested By: GAYE MCCAULEY Order Number: [id number] Reading MD: Oscar Nino Measurements Intervals [place] Rate: 63 P: 40 AR: 213 QRS: 35 QRSD: 110 T: 43 QT: 435 QTc: 446 Interpretive Statements Sinus rhythm Borderline prolonged AR interval Borderline T wave abnormalities Electronically Signed On 06-24-2025 15:40:07 PST by Oscar Nino Please click the below link to view image of tracing.
[2025-06-22] MEDS ORDERED: DOXY100C79 PO (10:55)
--- NOTE | 2025-06-22 11:02 | DVHDS2 ---
Discharge Summary Date of Admission Jun 20, 2025 at 19:39 Date of Discharge: Jun 22, 2025 Admitting Diagnosis Chest pain, rule out ACS Labs/Diagnostic Data: Laboratory Results Test 06/22/25 05:52 06/21/25 14:09 06/21/25 05:57 06/20/25 16:50 POC Glucose 131 mg/dl (70-106) Prothrombin Time 10.9 sec (9.3-11.8) Prothrombin Time INR 1.03 (0.9-1.15) Activated Partial Thromboplast Time 31.9 SEC (24.5-34.5) D-Dimer, Quantitative 0.72 mg/L FEU (0.0-0.49) Sodium Level 140 mmol/L (136-145) Potassium Level 3.9 mmol/L (3.5-5.1) Chloride Level 106 mmol/L (98-107) Carbon Dioxide Level 21 mmol/L (20-31) Anion Gap 13 (5-15) Blood Urea Nitrogen 22 mg/dL (9-23) Creatinine 1.13 mg/dL (0.700-1.30) Glomerular Filtration Rate Calc 63 mL/min (>90) BUN/Creatinine Ratio 19.5 (10.0-20.0) Serum Glucose 128 mg/dL (74-106) Calcium Level 8.9 mg/dL (8.7-10.4) Troponin I High Sensitivity 15 ng/L (</=54) Test 06/20/25 12:48 White Blood Count 10.8 10^3/uL (4.4-10.8) Red Blood Count 3.96 10^6/uL (4.5-5.90) Hemoglobin 12.0 g/dL (13.5-17.5) Hematocrit 35.6 % (41.0-53.0) Mean Corpuscular Volume 89.8 fL (80.0-100.0) Mean Corpuscular Hemoglobin 30.4 pg (28.0-32.0) Mean Corpuscular Hemoglobin Concent 33.8 g/dL (32.0-36.0) Red Cell Distribution Width 14.0 % (11.8-14.3) Platelet Count 243 10^3/uL (140-450) Mean Platelet Volume 7.5 fL (6.9-10.8) Neutrophils (%) (Auto) 78.4 % (37.0-80.0) Lymphocytes (%) (Auto) 10.6 % (10.0-50.0) Monocytes (%) (Auto) 6.8 % (0.0-12.0) Eosinophils (%) (Auto) 3.8 % (0.0-7.0) Basophils (%) (Auto) 0.4 % (0.0-2.0) Neutrophils # (Auto) 8.4 10 ^3/uL (1.6-8.6) Lymphocytes # (Auto) 1.1 10 ^3/uL (0.4-5.4) Monocytes # (Auto) 0.7 10 ^3/uL (0-1.3) Eosinophils # (Auto) 0.4 10 ^3/uL (0-0.8) Basophils # (Auto) 0 10 ^3/uL (0-0.2) Nucleated Red Blood Cells 0.0 % B-Type Natriuretic Peptide 540.86 pg/mL (0-100) Other Laboratory Tests 06/21/25 05:57 06/20/25 12:48 Brief Hx & Hospital Course: History of Present Illness 84-year-old male presents for evaluation of chest pain. Patient endorses a one day history of substernal pressure-like chest pain that radiates to his back. He reports mild shortness for breath. No nausea or vomiting. Currently rates the pain at 3/10 intensity. Course of hospitalization: Troponin x3 negative. EKG without any ST changes. Further discussion with the patient reveals that he recently on a nonstop flight from [facility] [address]. D- dimer was found to be elevated. CT angiogram of the chest was performed which revealed bilateral pulmonary nodules, for which the patient states is a known finding from the past. Patient also was negative for pulmonary embolism, but was also found to have enlarged ascending aorta. Mediastinal lymphadenopathy was also appreciated. DVT study was negative. Cardiology consultation was obtained. Patient has been stable while in the hospital. He will be discharged home and be provided doxycycline 100 mg p.o. b.i.d. for seven days. He will follow up with his PCP, Dr. Hutchinson within seven days. Patient will also continue all previous home medications. He is agreeable with discharge plan. All questions answered. Physical examination General: Alert and Oriented x3. No acute distress. Well-nourished. Eyes: EOMI. Anicteric. HENT: Moist mucous membranes. Lungs: Clear to auscultation bilaterally. No accessory muscle use. Cardiovascular: Regular rate and rhythm. No murmur. No JVD. Abdomen: Soft, non-tender and non-distended. No palpable masses. Extremities: No edema. Non-tender. Skin: No rashes or lesions. Warm. Neurologic: No focal neurological deficits. CN II-XII grossly intact, but not individually tested. Psychiatric: Cooperative. Appropriate mood and affect. Total time spent with patient discussing and formulating plan of care: 35 minutes. This medical document was created using an electronic medical record system with [employer] dictation system. Although this document has been carefully reviewed, there may still be some phonetic and typographical errors. These areas are purely typographical due to imperfections of the software programs, and do not reflect any compromise in the patient's medical care. Consults/Reason for consult Cardiology: Chest pain, rule out ACS Condition at Discharge: Guarded Final Diagnosis/Problems List Chest pain , secondary to mediastinal lymphadenopathy, probable infectious process Secondary diagnosis: Ruled out ACS -History of CAD with previous CABG -primary hypertension -acute on chronic diastolic heart failure -dyslipidemia -pulmonary nodules Discharge Disposition: Home Discharge Instruct/Medications Diet: Regular Activity: No Restrictions, As Tolerated Follow Up/Referral: Follow up with print finisher, Dr. Hutchinson in 1-2 weeks Medications: Doxycycline 100 mg p.o. b.i.d. Continue all previous home medications Scheduled Allium Sativan Extract (Garlic), Unknown Dose PO DAILY, (Reported) Aspirin (Asa), 81 MG CHEW DAILY, (Reported) Bioflavanoid Products (C Complex), Unknown Dose PO DAILY, (Reported) Cinnamon Bark (Cinnamon), Unknown Dose PO DAILY, (Reported) Clopidogrel Bisulfate (Plavix), 75 MG PO DAILY, (Reported) Cyanocobalamin (Vitamin B12), Unknown Dose PO DAILY, (Reported) Doxycycline (Monohydrate) (Doxycycline), 100 MG PO BID Glimepiride (Glimepiride), 2 MG PO DAILY, (Reported) Metformin Hydrochloride (Metformin Hcl), 500 MG PO BID, (Reported) Metoprolol Tartrate (Lopressor), 1 TAB PO QAM, (Reported) Sacubitril-Valsartan (Entresto 24-26 mg), 1 TAB PO BID, (Reported) 36 Discharge Statement: "Patient was advised to return to the ER or call 911 if any headaches, dizziness, shortness of breath, chest pain, abdominal pain, bleeding, fevers, or worsening of medical condition. Patient was counseled about treatment plan, medications, possible side effects, patientverbalized understanding. All questions were answered to the best of my ability. This discharge took greater then 30 minutes in planning, reviewing documentation, counseling the patient, and discussing with other team members." ASSESSMENT ASSESSMENT Assessment Chest pain Date of Service: Jun 22, 2025 Billing Provider: RAAMIS SMITH NP Common Visit Codes: 94061-JAQ/OBS DISCH DAY >30min ARAMIS SMITH NP Jun 22, 2025 11:02
--- NOTE | 2025-06-22 11:05 | DVHPN2 ---
Subjective Patient continues to report having right-sided substernal chest pain Reviewed: Care Plan, H&P, Labs, Medications, Previous Orders Changes from previous H/P or p: No Changes General: Per HPI Objective Vitals Vital Signs Date Time Temp Pulse Resp B/P (MAP) Pulse Ox O2 Delivery O2 Flow Rate FiO2 06/22/25 09:54 66 157/85 06/22/25 08:38 97.9 17 97 97.9 06/21/25 20:00 Room Air* 0 21 Intake/Output Intake and Output 06/22/25 07:00 Intake Total 200 ml Balance 200 ml Intake Oral 200 ml # Voids 2 General Appearance: Alert, Oriented X3, Cooperative, No acute distress HEENT: Atraumatic, PERRLA Lungs: Clear to auscultation, Normal air movement Cardiovascular: Normal S1, Normal S2 Abdomen: Normal bowel sounds, Soft, No tenderness, No hepatospenomegaly, No masses Musculoskeletal: Normal sensory function, Normal motor function Extremities: No clubbing, No cyanosis, No edema, Normal pulses, No tenderness/swelling Neuro: Normal gait, Normal speech Skin: Dry, Intact Psych/Mental Status: Mental status NL, Mood NL Medications Current Medications Medications Dose Ordered Sig/Marilyn Route Start Time Stop Time Status Last Admin Dose Admin Metoprolol Succinate 25 mg DAILY PO 06/21/25 10:00 06/22/25 09:54 25 MG Aspirin 81 mg DAILY PO 06/21/25 10:00 06/22/25 09:53 81 MG Clopidogrel Bisulfate 75 mg DAILY PO 06/21/25 10:00 06/22/25 09:53 75 MG Sacubitril/ Valsartan 1 tab BID PO 06/20/25 22:00 06/22/25 09:53 1 TAB Diagnostic Test (Pha) 1 strip ACHS 06/20/25 22:00 06/22/25 05:53 1 STRIP Insulin Human Regular ACHS SC 06/20/25 22:00 Dextrose 50 ml UD PRN IV 06/20/25 19:45 Ondansetron HCl 4 mg Q4HP PRN IV 06/20/25 19:45 Acetaminophen 650 mg Q6HP PRN PO 06/20/25 19:45 Nitroglycerin 0.4 mg Q5MINP PRN SL 06/20/25 19:45 Morphine Sulfate 2 mg Q30M PRN IV 06/20/25 20:30 Laboratory Results Laboratory Tests 06/20/25 12:48 06/21/25 05:57 Coagulation Test 06/21/25 14:09 Prothrombin Time 10.9 sec (9.3-11.8) Prothrombin Time INR 1.03 (0.9-1.15) Activated Partial Thromboplast Time 31.9 SEC (24.5-34.5) D-Dimer, Quantitative 0.72 mg/L FEU (0.0-0.49) H Labs and/or images reviewed: Labs reviewed by me, Image(s) reviewed by me Assessment/Plan Assessment/Plan Impression: -rule out ACS -history of coronary artery disease with previous CABG -dyslipidemia -acute on chronic diastolic heart failure -rule out PE/DVT Impression: -given negative troponin and no ST changes, ACS ruled out -CT angiogram of the chest -DVT study of lower extremities -continue dual antiplatelet therapy -gentle IV hydration Total time spent with patient discussing and formulating plan of care: 35 minutes. This medical document was created using an electronic medical record system with [employer] dictation system. Although this document has been carefully reviewed, there may still be some phonetic and typographical errors. These areas are purely typographical due to imperfections of the software programs, and do not reflect any compromise in the patient's medical care. Plan discussed with: Patient, Other (RN) My Orders Orders - ARAMIS SMITH NP Procedure Category Date Status Time Ct Angio Chest CT 06/21/25 Resulted Contrast 14:49 Bilat Lower Dvt US 06/21/25 Resulted 14:49 Discharge DISCHARGE 06/22/25 Transmitted 10:51 Date of Service: Jun 22, 2025 Billing Provider: ARAMIS SMITH NP Common Visit Codes: [id number] INP/OBS CARE(HIGH) ARAMIS SMITH NP Jun 22, 2025 11:05
[2025-06-22 11:48] VITALS: BP 135/87; PULSE 70; RESP 17; TEMP 97.9; O2SAT 97
--- NOTE | 2025-06-22 22:22 | DVHPN2 ---
Progress Note - Dictate Date Seen: Jun 22, 2025 Medical Necessity Reason Pt with a Central, PICC or Fol: No Subjective Patient was seen and evaluated in follow up. Patient has no new complaints at this time. Patient denies any cardiac symptoms. Patient is cardiac stable for discharge. Telemetry reviewed. vital signs Vital Sign Date Time Temp Pulse Resp B/P (MAP) Pulse Ox O2 Delivery O2 Flow Rate FiO2 06/22/25 11:48 97.9 70 17 97 06/22/25 09:54 157/85 06/22/25 08:00 Room Air* 0 21 Total Intake and Output 06/21/25 06/21/25 06/22/25 15:00 23:00 07:00 Intake Total 200 ml Balance 200 ml objective GENERAL: Alert and oriented x 3. No acute distress. EYES: PERRL, EOMI. Anicteric. HENT: Moist mucous membranes. LUNGS: Clear to auscultation bilaterally. CARDIOVASCULAR: Regular rate and rhythm. ABDOMEN: Soft, non-tender and non-distended. EXTREMITIES: No edema. NEUROLOGIC: No focal neurological deficits. SKIN: Warm, dry. laboratory and microbiology Laboratory Tests 06/21/25 05:57 06/20/25 12:48 Test 06/21/25 05:57 Range/Units Serum Glucose 128 H 74-106 mg/dL Problem List Chest pain. Diabetes mellitus. Status post CABG. Hypertension. Coronary artery disease. Status post coronary artery bypass grafting with DAVILA to the LAD, saphenous. Anxiety disorder problem. Organic brain syndrome. Hyperlipidemia. Assessment/Plan Continued all current supportive medical care. Aspirin, Plavix, Metoprolol. Morphine for pain management. Nitro SL. Entresto. Additional plan as per the hospital course. Plan discussed with: Patient CIARRA ZAPATA MD Jun 22, 2025 13:40
== END 2025-06-22 12:31 | disposition home or self-care (01) | DRG 814 ==
LOC: EDBD 12:28 → ER 12:28 → OVERFLOW 19:39 → TELE-CENTR 06-21 17:08
PROVIDERS: ADMIT Nurse Practitioner Acute Care; ATTEND Nurse Practitioner Acute Care
DX: R59.0 Localized enlarged lymph nodes (principal); I50.33 Acute on chronic diastolic (congestive) heart failure; I11.0 Hypertensive heart disease with heart failure; E11.9 Type 2 diabetes mellitus without complications; Z95.1 Presence of aortocoronary bypass graft; I25.10 Atherosclerotic heart disease of native coronary artery without angina pectoris; F41.9 Anxiety disorder, unspecified; E78.5 Hyperlipidemia, unspecified; Z83.3 Family history of diabetes mellitus; Z79.899 Other long term (current) drug therapy
CPT/HCPCS: 36415; 71045; 71275; 80048; 82962; 83880; 84484; 85025; 85379; 85610; 85730; 93005; 93970; 99291; G0378